=== PATIENT | female | born 1945 | race Caucasian/White ===

== ENCOUNTER 2022-09-24 07:58 | Outpatient (CLI) | payer MEDICARE, BC, SELFPAY ==
[2022-09-24 13:10] LABS: Cholesterol* 240 mg/dL (90-199); Glucose* 92 mg/dL (60-115); HDL Cholesterol* 67 mg/dL (>=50); LDL Cholesterol Calculated 155 mg/dL (<100); Triglycerides* 91 mg/dL (40-149)
[2022-09-24 13:14] LABS: Vitamin D 25 Hydroxy* 34 ng/mL (30-80)
== END 2022-09-24 07:59 | disposition home or self-care (01) ==
LOC: NFLDREF 07:59
PROVIDERS: PCP Internal Medicine; Visit Provider Internal Medicine
DX: Z00.00 Encounter for general adult medical examination without abnormal findings (principal); E03.9 Hypothyroidism, unspecified; M85.80 Other specified disorders of bone density and structure, unspecified site; E78.5 Hyperlipidemia, unspecified
CPT/HCPCS: 80061; 82306; 82947; 84443

== ENCOUNTER 2023-04-19 18:36 | Outpatient (CLI) | payer MEDICARE, BC, SELFPAY | END 2023-04-19 18:37 | disposition home or self-care (01) | LOC: AMB 04-22 12:09 | PROVIDERS: PCP Internal Medicine; Visit Provider Emergency Medicine Emergency Medical Services | DX: R07.89 Other chest pain (principal) | CPT/HCPCS: A0425; A0429 ==

== ENCOUNTER 2023-07-15 11:40 | Outpatient (CLI) | payer MEDICARE, BC, SELFPAY | END 2023-07-15 11:41 | disposition home or self-care (01) | LOC: AMB 07-16 11:33 | PROVIDERS: PCP Internal Medicine; Visit Provider Family Medicine | DX: S09.90XA Unspecified injury of head, initial encounter (principal); S19.9XXA Unspecified injury of neck, initial encounter; S09.93XA Unspecified injury of face, initial encounter; S89.92XA Unspecified injury of left lower leg, initial encounter; W18.09XA Striking against other object with subsequent fall, initial encounter; Y92.512 Supermarket, store or market as the place of occurrence of the external cause | CPT/HCPCS: A0425; A0429 ==

== ENCOUNTER 2023-07-15 12:07 | Emergency (ER) | payer MEDICARE, BC, SELFPAY ==
[2023-07-15 12:13] VITALS: BP 140/87; RESP 16; TEMP 35.8; O2SAT 98; BMI 26.3
--- NOTE | 2023-07-15 12:27 | CRLHL7_ITS ---
For Patients: As a result of the Cures Act, medical imaging exams and procedure reports are released immediately into your electronic medical record. You may view this report before your referring provider. If you have questions, please contact your health care provider. INDICATION: Fall. COMPARISON: None. TECHNIQUE: Four views of the right knee. FINDINGS: The knee soft tissues are unremarkable. Tibial femoral chondrocalcinosis is present. The tibial femoral and patellofemoral joint spaces are well maintained. No fracture or osteonecrosis is identified. IMPRESSION: 1. No fracture. 2. Chondrocalcinosis. Dictated by Kristian García MD @ 07/15/2023 1:33:52 PM (Electronically Signed)
--- NOTE | 2023-07-15 12:27 | CRLHL7_ITS ---
For Patients: As a result of the Century Cures Act, medical imaging exams and procedure reports are released immediately into your electronic medical record. You may view this report before your referring provider. If you have questions, please contact your health care provider. Indication: Trauma. Fall and hit face. Technique: CT head: Performed without IV contrast. CT facial bones: Performed without IV contrast Comparison: None available. Findings: CT Head: No hemorrhage is identified. No cortical edema or ischemia is localized on this exam. No mass effect or ventricular obstruction. There are some low-attenuation changes in the cerebral white matter compatible with small vessel ischemic change. There is also mild background symmetric cerebral atrophy. The calvarium and skull base are unremarkable, with normal aeration of the visualized petrous temporal bones on both sides. CT facial bones: No facial bone fractures are identified. The mandible, maxilla, nasal bones and nasal spine, zygomatic bones and orbital rims are intact on both sides. No evidence for orbital hematoma. Slight scattered membrane thickening in the ethmoid paranasal sinuses. Impression: CT head: 1. No hemorrhage, fracture or cortical contusion. 2. Mild to moderate cerebral atrophy. 3. Probable mild small vessel ischemic changes. CT facial bones: 1. No fractures are identified. 2. Minimal membrane thickening in the ethmoid paranasal sinuses. Please note that all CT scans at this facility use dose modulation, iterative reconstruction, and/or weight-based dosing when appropriate to reduce radiation dose to as low as reasonably achievable. Dictated by José Lawson MD @ 07/15/2023 1:18:57 PM (Electronically Signed)
--- NOTE | 2023-07-15 12:27 | CRLHL7_ITS ---
For Patients: As a result of the Cures Act, medical imaging exams and procedure reports are released immediately into your electronic medical record. You may view this report before your referring provider. If you have questions, please contact your health care provider. INDICATION: Fall. COMPARISON: None. TECHNIQUE: Four views of the left knee. FINDINGS: The left knee soft tissues are unremarkable. Tibial femoral chondrocalcinosis is present. The tibial femoral and patellofemoral joint spaces are well maintained. No fracture or osteonecrosis is identified. IMPRESSION : 1. No fracture. 2. Chondrocalcinosis. Dictated by Kristian García MD @ 07/15/2023 1:35:26 PM (Electronically Signed)
--- NOTE | 2023-07-15 12:27 | CRLHL7_ITS ---
For Patients: As a result of the Century Cures Act, medical imaging exams and procedure reports are released immediately into your electronic medical record. You may view this report before your referring provider. If you have questions, please contact your health care provider. Indication: Pain following trauma. Follow-up. Technique: Performed without IV contrast. Comparison: None available. Findings: No traumatic subluxation identified. Straightening of the normal cervical lordosis. No evidence for fracture. Scattered spondylosis, including right-sided uncinate hypertrophy at C6-7 with potential impingement on the right C7 nerve root. The paraspinal soft tissues are grossly negative. Impression: 1. No fracture or traumatic subluxation identified. 2. Asymmetric right uncinate hypertrophy at C6-7, with potential C7 root impingement. Please note that all CT scans at this facility use dose modulation, iterative reconstruction, and/or weight-based dosing when appropriate to reduce radiation dose to as low as reasonably achievable. Dictated by José Lawson MD @ 07/15/2023 1:21:18 PM (Electronically Signed)
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
[2023-07-15 13:23] VITALS: PULSE 81; O2SAT 97
[2023-07-15 13:30] VITALS: PULSE 73; O2SAT 98
[2023-07-15 13:32] VITALS: BP 124/55; PULSE 87; O2SAT 99
[2023-07-15 13:45] VITALS: PULSE 74; O2SAT 98
== END 2023-07-15 14:05 | disposition home or self-care (01) ==
PROVIDERS: Emergency Provider Student in an Organized Health Care Education/Training Program; PCP Internal Medicine
DX: M25.562 Pain in left knee (principal); S09.92XA Unspecified injury of nose, initial encounter; W01.0XXA Fall on same level from slipping, tripping and stumbling without subsequent striking against object, initial encounter
CPT/HCPCS: 70450; 70486; 72125; 73564; 99283; 99284

== ENCOUNTER 2025-05-25 13:06 | Emergency (ER) | payer MEDICARE, BC, SELFPAY ==
--- OUTSIDE RECORDS SUMMARY | 2021-04-06 07:44 | XMS_ITS | Continuity of Care Document ---
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 Name Role Phone Cedric Jones MD Unavailable Unavailable Allergies, Adverse Reactions, Alerts Substance Reaction Status Criticality codeine Vomiting Active No Information terbinafine Taste sense alteredItchingItching Active No Information Medications Medication Instructions Dosage Effective Dates (start - stop) Status Comments Synthroid 75 mcg tablet take 1 tablet by oral route 2 times weekly and 0.5 5 times weekly - Active Vitamin C 500 mg chewable tablet Chew 1 tablet by oral route 1 time daily - Active Procedures Procedure Date New Level 4 or 45-59 min Advance Directives Directive Yes / No Effective Date File Name No Information Encounters Encounter Description Practice Location Reason(s) For Visit Diagnoses Date Provider Providers Copied on Encounter [facility], [address] [address], [place], [place], [id number], [place] tel:[phone] [facility] No Information 1 Karen Steele. [address], [facility] [address], [place], [place], [id number], [place]. tel:[phone] New Level 4 or 45-59 min [facility], [address] [address], [place], [place], [id number], [place] tel:[phone] [facility] GI Symptoms or Concerns (chief complaint) Dysphagia, unspecified typeDuodenal adenoma 0 No Information Referring Provider: Kourtney Ca MD E, [address] [place] [facility], [place], [address]. tel:[phone] [facility], [address] [address], [place], [place], [id number], [place] tel:[phone] [facility] No Information 0 Karen Steele. [address], [facility] [address], [place], [place], [id number], [place]. tel:[phone] Family History Family Member Type Diagnosis Age At Onset Mother Problem (finding) alcoholism Daughter Problem (finding) Blood clotting disorder Mother Problem (finding) Diabetes mellitus Father Problem (finding) Parkinson's disease Immunizations Vaccine Date Status Comments tetanus toxoid, reduced diphtheria toxoid, and acellular pertussis vaccine, adsorbed administered Note: [facility] b i-directional interface ; Source: Other Registry influenza, high dose seasona l, preservative-free administered Note: [facility] bi-direct ional interface ; Source: Other Registry Influenza, seasonal, injecta ble, preservative free administered Note: [facility] bi-direct ional interface ; Source: Other Registry Pneumovax 23 administered Note: [facility] bi-d irectional interface ; Source: Other Registry zoster vaccine, live administered Note: [facility] bi-directional interface ; Source: Other Registry Influenza, seasonal, injecta ble, preservative free administered Note: [facility] bi-direct ional interface ; Source: Other Registry tetanus and diphtheria toxoi ds, adsorbed, preservative free, for adult use (2 Lf of tetanus toxoid and 2 Lf of diphtheria toxoid) administered Note: [facility] bi-direct ional interface ; Source: Other Registry tetanus and diphtheria toxoi ds, adsorbed, preservative free, for adult use (2 Lf of tetanus toxoid and 2 Lf of diphtheria toxoid) administered Note: [facility] bi-direct ional interface ; Source: Other Registry Payers Payer name Insurance type Covered republican ID Authoriza tion(s) [employer] [place] [employer] BL [id number] Social History Type Description Quantity Date Captured Comments Alcohol Use Details Unknown Caffeine Use Details Unknown Tobacco Use Status No Information Smoking Status No Information Sex Female Chief Complaint And Reason For Visit No Information Reason For Referral Reason For Referral No Information Plan Of Treatment Date Type Action Status Referral Ordered: EGD Appointment date/timeframe: 04/26/2021 ordered History Of Present Illness Encounter Date Complaint History Of Prese nt Illness GI Symptoms or Concerns Areli Connelly son is a 75-year-old female who was referred for evaluation of dysphagia and a duodenal adenoma. The patient did consent to her visit being held via the computer and she did have a friend present with her on the video chat.The patient has a history of dysphagia as well as a duodenal adenoma, which was diagnosed in 2018.The patient states that she had been having trouble swallowing in 2018. She underwent an endoscopy with a surgeon in [place]. 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 Following this, she had an esophagram which suggested esophageal dysmotility as well as a cervical esophageal webs on an esophagram. She was referred for an endoscopy with Dr. Tommy Arboleda which was completed in 2018 with a side-viewing scope. This revealed a web in the upper third of the esophagus which was dilated with an ERCP scope. She had a large carpet like polyp with no bleeding in the duod Functional Status Date Functional Assessmen t No Information Instructions Date Instruction Additional Infor hazel 1. Will plan for upp er endoscopy with a side viewing scope. Will review with our advanced endoscopists to see if EUS should be done at the same time. Can dilate the esophagus if needed during that scope2. Depending on the results we could consider a 2nd surgical opinion at the [facility] Related to Dysphagia, unspecified type Assessments Type Assessment Date No Information Patient Care Teams Name Effective Dates (start - stop) Status Members No Information
--- OUTSIDE RECORDS SUMMARY | 2025-05-25 13:08 | XMS_ITS | Clinical Summary ---
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 levothyroxine (SYNTHROID) 75 mcg tabletIndication s:Hypothyroidism , unspecified type Take 1/2 tablet PO qd 5 days per week and 1 tablet PO qd 2 days per week 90 Tablet 3 4 Active fluticasone (50 mcg per actuation) nasal solution (FLONASE)Indicat ions:Sinus pain Inhale 2 Sprays into affected nostril(s) once daily. 16 g 11 5 Active triamcinolone (ARISTOCORT; KENALOG) 0.1 % creamIndications :Dermatitis Apply a pea-sized amount topically 1-2x per day up to 10 days at a time to your right forearm. Do not recommend routine daily use as this can thin the skin. 15 g 1 5 Active medication order composerIndicati ons:PTSD (post-traumatic stress disorder) [employer] Glynn-3 - 1 tsp daily with food (omegas 1560 mg - EPA 745 mg, DHA 500 mg) [employer] Life Vitamin D - 2000 IU daily Solary Vitamin B complex with c - 1/2 chewable tablet daily Natural Calm mag citrate - 1.75 tsp daily Natural Factors suntheanine 100 mg HS 5 Active cholecalciferol (Vitamin D-3) 2,000 unit capsule Take 1 Capsule (2,000 units) by mouth once daily. 5 Active theanine 100 mg chew Chew by mouth. 5 Active predniSONE (DELTASONE) 10 mg tabletIndication s:Sjogren's syndrome, with unspecified organ involvement (HC) Take 2 tablets (20 mg) once daily for 5 days, then 1 tablet (10 mg) once daily for 5 days. 15 Tablet 5 Active magnesium oxide 300 mg magnesium tab Take by mouth. Activ e calcium phosphate-vitami n D3 125 mg-3.125 mcg (125 unit) chew Chew by mouth. Active vitamin B complex (B COMPLEX B-12 ORAL) Take by mouth. Activ e calcium phos-D3-mag cit-vit K1 (Kids Bones-Muscles) 162 mg calcium- 10 mcg-21 mg chew Chew by mouth. Activ e Active Problems Problem Noted Date Diagnosed Date Generalized osteoarthritis of multiple sites 02/2025 Sjogren's syndrome 01/24/2025 Esophageal web determined by endoscopy 4 11/27/2018 Villous adenoma of duodenum 10/25/202411/17 Overview (10/25/2024): PT was last seen by GI in 2019 and had discussed doing Whipple surgery vs monitoring, PT chose monitoring and has had no repeat EGD since 2019 Esophageal dysphagia 10/25/20242017 Overview (10/25/2024): dysphagia since per chad avendano note S/P cholecystectomy 10/25/2024 Osteopenia of multiple sites 10/22/2024 Overview (11/09/2024): Hips with high risk fracture score-she would like to continue supportive management for treatment. 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 [address] [place] [address] Delgado Burkett MD Recheck (Hearing Loss) 04/18/2025 1:00 PM CDT Office Visit [facility] [address] [place] [address] Zohreh Flannery, AuD Hearing Problem 04/18/2025 Travel 03/09/2025 3:35 PM CDT Ancillary Procedure [facility] [address] [facility] [address] [place] [address] 03/09/2025 3:30 PM CDT Ancillary Procedure [place] [id number] [facility] [address] [place] [address] 03/09/2025 3:25 PM CDT Ancillary Procedure [facility] [address] [facility] [address] [place] [address] 03/09/2025 3:20 PM CDT Ancillary Procedure [facility] [address] [facility] [address] [place] [address] 03/09/2025 2:00 PM CDT [facility] [address] [facility] [address] [place] [address] Andreia Arnold MD Consult (Sjogren's syndrome ) 03/09/2025 Orders Only [facility] Scanner 1 scan: (1-Ord) [facility] 03/09/2025 Travel from Last 3 Months Immunizations Immunization Administration Dates Next Due Influenza, High-dose Inactivated 10/26/2014 Influenza, IIV3 (Age 6-35 mos) 08/18/2013,2011 Pneumococcal Poly,23-Valent (Pneumovax) 09/14/20 12 Td (Age >=7 Years) 05/03/2011,05/19/2000 Tdap 10/01/2016 Zoster (Zostavax-ZVL, live) 09/14/2012 Family History Medical History Relation Name Comments Parkinsonism Father Alcoholism Mother Depression Mother Diabetes Mother Cancer-breast No Family History Cancer-ovarian No Family History Relation Name Status Comments Father Mother Social History Tobacco Use Types Packs/Day Years Used Date Smoking Tobacco: Never Passive Smoke Exposure: Never Smokeless Tobacco: Never Tobacco Cessation:Counseling Given: Yes Alcohol Use Standard Drinks/Week Comments Not Currently 0 (1 standard drink = 0.6 oz pur e alcohol) Extremely Rare PHQ-2 Answer Date Recorded PHQ-2 TOTAL SCORE 2 10/21/2024 Social Connections Answer Date Recorded Do you often feel lonely or isolated from those around you? 4 10/21/2024 Financial Resource Strain Answer Date R ecorded Difficulty of Paying Living Expenses 3 10/21/2024 Difficulty of Paying Living Expenses Not on file 10/21/2024 Food Insecurity Answer Date Recorded Do you worry your food will run out before you are able to buy more? 1 10/21/2024 Transportation Needs Answer Date Record ed Does lack of transportation keep you from medica l appointments? 1 10/21/2024 Does lack of transportation keep you from work, meetings or getting things that you need? 1 10/21/2024 Housing Stability Answer Date Recorded What is your housing situation today? 1 10/21/2024 Utilities Answer Date Recorded Do you have trouble paying f or utilities (for example, heat, electricity, water, phone)? 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 Gender Identity Not on file Sexual Orientation Not on file Obstetrics History Last Filed Vital Signs Vital Sign Reading Time Taken Comments Blood Pressure 138/62 04/20/2025 2:20 PM CDT Pulse 86 04/20/2025 2:20 PM CDT Temperature 36.6 C (97.9 F) 10/25/2024 9:22 AM CHILDREN'S MINISTRY DIRECTOR Respiratory Rate 16 10/25/2024 12:15 PM CHILDREN'S MINISTRY DIRECTOR Oxygen Saturation 97% 04/20/2025 2:20 PM CDT Inhaled Oxygen Concentration - - Weight 66.5 kg (146 lb 9.6 oz) 04/20/2025 2:20 P M CDT Height 152.4 cm (5') 04/20/2025 2:20 PM CDT Body Mass Index 28.63 04/20/2025 2:20 PM CDT Plan of Treatment Upcoming Encounters Date Type Department Care Team (Late st Contact Info) Description 06/17/2025 11:15 AM CDT Ancillary Procedure [facility] [address] [place] [address] 06/20/2025 1:00 PM CDT Office Visit [facility] [address] [place] [facility] [place] [address] Katerine Montoya PA [address] [place] [address] 08/22/2025 9:30 AM CDT Orders Only [facility] [address] [place] [facility] [place] [address] Lab, [place] 08/29/2025 1:00 PM CDT Office Visit [facility] [address] [address] [place] [address] [place], [place] [id number] Health Maintenance Due Date Last Done Comments Zoster (shingles) series for age 50+ (2 of 3) 11/09/2012 09/14/2012 Pneumococcal series for age 50+ (2 of 2 - PCV) 09/14/2013 09/14/2012 RSV vaccine for adults or (1 - 1-dose 75+ series) 2022 COVID-19 vaccine series (3 - season) 2024 04/17/2021, 03/20/2021 Influenza Vaccine (#1) 2025 4, 08/18/2013, 08/14/2012 Medicare Wellness for age 65+ 10/22/2025 10/21/2024, 10/17/2023 Depression screening for age 12+ 11/02/2025 11/02/2024, 10/21/2024, 08/23/2024, Additional history exists BMI (ht and wt on same day) for age 18+ 04/20/2026 04/20/2025, 03/09/2025, 01/21/2025, Additional history exists Tetanus booster 10/01/2026 10/01/2016, 04/17, 05/19/2000 Hepatitis C screening for age 18-79 Completed 10/10/2023 DEXA/DXA scan for age 65+ Completed 11/02/2024, Hepatitis B series for 19+ Aged Out N o longer eligible based on patient's age to complete this topic Procedures Procedure Name Priority Date/Time Associated Diagnosis Comments ANTINUCLEAR ANTIBODIES TITER AND PATTERN (QUEST REFLEX ONLY) Routine 03/09/2025 3:45 PM CDT C4 COMPLEMENT Routine 03/09/2025 3:45 PM CDT Sjogren's syndrome with keratoconjunctivitis sicca (HC) C3 COMPLEMENT Routine 03/09/2025 3:45 PM CDT Sjogren's syndrome with keratoconjunctivitis sicca (HC) COMP METABOLIC PANEL Routine 03/09/2025 3:45 PM CDT Sjogren's syndrome with keratoconjunctivitis sicca (HC) VA BLOOD COUNT COMPLETE AUTO&AUTO DIFRNTL WBC Routine 03/09/2025 3:45 PM CDT Sjogren's syndrome with keratoconjunctivitis sicca (HC) TSH Routine 03/09/2025 3:45 PM CDT Fatigue, unspecified type CK TOTAL Routine 03/09/2025 3:45 PM CDT Sjogren's syndrome with keratoconjunctivitis sicca (HC) DNA DOUBLE-STRANDED (DSDNA) ANTIBODIES BY CRITHIDIA LUCILIAE IFA Routine 03/09/2025 3:45 PM CDT Sjogren's syndrome with keratoconjunctivitis sicca (HC) SEDIMENTATION RATE Routine 03/09/2025 3: 45 PM CDT Sjogren's syndrome with keratoconjunctivitis sicca (HC) C-REACTIVE PROTEIN Routine 03/09/2025 3: 45 PM CDT Sjogren's syndrome with keratoconjunctivitis sicca (HC) ANTINUCLEAR ANTIBODY BY IFA Routine 03/09/2025 3:45 PM CDT Sjogren's syndrome with keratoconjunctivitis sicca (HC) UA W/ SEDIMENT EXAM REFLEXED PER CRITERIA STAT 03/09/2025 3:44 PM CDT Sjogren's syndrome with keratoconjunctivitis sicca (HC) PROTEIN/CREAT RATIO,URINE Routine 03/09/2025 3:43 PM CDT Sjogren's syndrome with keratoconjunctivitis sicca (HC) XR KNEE WB 1 VIEW AP BILATERAL AND 2 VIEWS BILATERAL Routine 03/09/2025 3:34 PM CDT Polyarthralgia XR SPINE LUMBAR 2 VIEWS Routine 03/09/2025 3:32 PM CDT Chronic midline low back pain without sciatica XR SHOULDER 2 VIEWS BILATERAL Routine 03/09/2025 3:31 PM CDT Polyarthralgia XR SPINE CERVICAL 2 VIEWS Routine 03/09/2025 3:26 PM CDT Chronic neck pain SCAN-EYE EXAM 03/09/2025 12:00 AM CDT XR DXA BONE DENSITY 2 SITES AXIAL Routine 11/02/2024 11:33 AM CHILDREN'S MINISTRY DIRECTOR Postmenopausal ANTI HCV Routine 10/10/2023 1:26 PM CHILDREN'S MINISTRY DIRECTOR Need for hepatitis C screening test from Last 3 Months or Most Recently Relevant to Health Maintenance Results * (ABNORMAL) ANTINUCLEAR ANTIBODIES TITER AND PATTERN (QUEST REFLEX ONLY) (03/09/2025 3:45 PM CDT) BRANDI TITER 1:160(H) titer [facility] Comment: Reference Range <1:40 Negative 1:40-1:80 Low Antibody Level >1:80 Elevated Antibody Level BRANDI PATTERN Nuclear, Speckled( A) [facility] Comment: Speckled pattern is associated with mixed connective tissue disease (MCTD), systemic lupus erythematosus (SLE), Sjogren's syndrome, dermatomyositis, and systemic sclerosis/polymyositis overlap. AC-2,4,5,29: Speckled International Consensus on BRANDI Patterns (https://doi.org/10.1515/fulg-6212-4151) 03/09/2025 3:45 PM CDT 03/09/2025 3:46 PM CDT us Andreia Arnold MD LABORATORY Fin al Result Performing Organization Address [facility] Co de Phone Number [employer] [facility] [address] [place] [address], [place] [phone] [facility] [address] [facility] [place] [address] * (ABNORMAL) SEDIMENTATION RATE (03/09/2025 3:45 PM CDT) Pathologist [facility] SED RATE BY MODIFIED WESTERGREN 34(H) < OR = 30 mm/h [facility] Nguyen Blood BLOOD SPECIMEN / Unknown 03/09/2025 3:45 PM CDT 03/09/2025 3:46 PM CDT Andreia Arnold MD HEMATOLOGY Fin al Result Performing Organization Address [facility] de Phone Number [employer] [facility] [address] [place] [address], [place] [phone] [facility] [address] [facility] [place] [address] * (ABNORMAL) ANTINUCLEAR ANTIBODY BY IFA (03/09/2025 3:45 PM CDT) [facility] BRANDI SCREEN, IFA POSITIVE( A) NEGATIVE [email or web address] Comment: BRANDI IFA is a first line screen for detecting the presence of up to approximately 150 autoantibodies in various autoimmune diseases. A positive BRANDI IFA result is suggestive of autoimmune disease and reflexes to titer and pattern. Further laboratory testing may be considered if clinically indicated. For additional information, please refer to http://education.Stoke/faq/NFM006 (This link is being provided for informational/ educational purposes only.) Blood BLOOD SPECIMEN / Unknown 03/09/2025 3:45 PM CDT 03/09/2025 3:46 PM CDT Andreia Arnold MD CHEMISTRY Fin al Result Performing Organization Address [facility] Co de Phone Number [employer] [facility] [address] [facility] [place] [address], [place] [phone] [facility] [address] [place] [address] * TSH (03/09/2025 3:45 PM CDT) TSH 1.15 0.40 - 4.50 mIU/L [facility] Blood BLOOD SPECIMEN / Unknown 03/09/2025 3:45 PM CDT 03/09/2025 3:46 PM CDT Andreia Arnold MD CHEMISTRY Fin al Result Performing Organization Address City/[facility]/ZIP Co de Phone Number [employer] [facility] [address] [facility] [place] [address], [place] [phone] [facility] [address] [facility] [place] [address] * C3 COMPLEMENT (03/09/2025 3:45 PM CDT) COMPLEMENT COMPONENT C3C 145 83 - 193 mg/dL [facility] Blood BLOOD SPECIMEN / Unknown 03/09/2025 3:45 PM CDT 03/09/2025 3:46 PM CDT Andreia Arnold MD CHEMISTRY Fin al Result [facility] [address] [facility] [place] [address], [place] [phone] [facility] [address] [place] [address] * C4 COMPLEMENT (03/09/2025 3:45 PM CDT) COMPLEMENT COMPONENT C4C 23 15 - 57 mg/dL [facility] Blood BLOOD SPECIMEN / Unknown 03/09/2025 3:45 PM CDT 03/09/2025 3:46 PM CDT Andreia Arnold MD CHEMISTRY Fin al Result [employer] [facility] [address] [facility] [place] [address], [place] [phone] [facility] [address] [facility] [place] [address] * DNA DOUBLE-STRANDED (DSDNA) ANTIBODIES BY CRITHIDIA LUCILIAE IFA (03/09/2025 3:45 PM CDT) DNA (DS) ANTIBODY <1 IU/mL [facility] Comment: IU/mL Interpretation < or = 4 Negative 5-9 Indeterminate > or = 10 Positive Blood BLOOD SPECIMEN / Unknown 03/09/2025 3:45 PM CDT 03/09/2025 3:46 PM CDT Andreia Arnold MD SEND OUTS Fin al Result Performing Organization Address [facility]/ZIP Co de Phone Number [employer] [facility] [address] [place] [address], [place] [phone] [facility] [address] [place] [address] * C-REACTIVE PROTEIN (03/09/2025 3:45 PM CDT) C-REACTIVE PROTEIN <3.0 <8.0 mg/L [facility] Blood BLOOD SPECIMEN / Unknown 03/09/2025 3:45 PM CDT 03/09/2025 3:46 PM CDT Andreia Arnold MD CHEMISTRY Fin al Result [employer] [facility] [address] [facility] [place] [address], [place] [phone] [facility] [address] [place] [address] * CBC AND DIFFERENTIAL (03/09/2025 3:45 PM CDT) WHITE BLOOD CELL COUNT 5.7 3.8 - 10.8 Thousand/u L [facility] ( RED BLOOD CELL COUNT 4.01 3.80 - 5.10 Million/uL [facility] ( HEMOGLOBIN 12.0 11.7 - 15.5 g/dL [facility] ( HEMATOCRIT 36.7 35.0 - 45.0 % [facility] ( MCV 91.5 80.0 - 100.0 fL [facility] ( MCH 29.9 27.0 - 33.0 pg [facility] ( MCHC 32.7 32.0 - 36.0 g/dL [facility] ( Comment: For adults, a slight decrease in the calculated MCHC value (in the range of 30 to 32 g/dL) is most likely not clinically significant; however, it should be interpreted with caution in correlation with other red cell parameters and the patient's clinical condition. RDW 14.4 11.0 - 15.0 % [facility] ( PLATELET COUNT 297 140 - 400 Thousand/u L [facility] ( MPV 8.3 7.5 - 12.5 fL [facility] ( ABSOLUTE NEUTROPHILS 2,172 1,500 - 7,800 cells/uL [facility] ( ABSOLUTE LYMPHOCYTES 2,616 850 - 3,900 cells/uL [facility] ( ABSOLUTE MONOCYTES 673 200 - 950 cells/uL [facility] ( ABSOLUTE EOSINOPHILS 200 15 - 500 cells/uL [facility] ( ABSOLUTE BASOPHILS 40 0 - 200 cells/uL [facility] ( NEUTROPHILS 38.1 % [facility] ( LYMPHOCYTES 45.9 % [facility] ( MONOCYTES 11.8 % [facility] ( EOSINOPHILS 3.5 % [facility] ( BASOPHILS 0.7 % [facility] ( Blood BLOOD SPECIMEN / Unknown 03/09/2025 3:45 PM CDT 03/09/2025 3:46 PM CDT Andreia Arnold MD HEMATOLOGY Fin al Result [facility] [address] [place] [address], [facility] ( [address] [place] [address] * CK TOTAL (03/09/2025 3:45 PM CDT) CREATINE KINASE, TOTAL 103 18 - 225 U/L [facility] sivakumar Nguyen Blood BLOOD SPECIMEN / Unknown 03/09/2025 3:45 PM CDT 03/09/2025 3:46 PM CDT Andreia Arnold MD CHEMISTRY Fin al Result Performing Organization Address City/[facility]/ZIP Co de Phone Number [facility] [address] [place] [address], [facility] [address] [place] [address] * COMP METABOLIC PANEL (03/09/2025 3:45 PM CDT) GLUCOSE 89 65 - 99 mg/dL [facility] Comment: Fasting reference interval UREA NITROGEN (BUN) 19 7 - 25 mg/dL [facility] CREATININE 0.94 0.60 - 1.00 mg/dL [facility] EGFR 62 > OR = 60 mL/min/1. 73m2 [facility] BUN/CREATININE RATIO SEE NOTE: (calc) [facility] Comment: Not Reported: BUN and Creatinine are within reference range. SODIUM 140 135 - 146 mmol/L [facility] POTASSIUM 4.1 3.5 - 5.3 mmol/L [facility] CHLORIDE 106 98 - 110 mmol/L [facility] CARBON DIOXIDE 28 20 - 32 mmol/L [facility] CALCIUM 9.8 8.6 - 10.4 mg/dL [facility] PROTEIN, TOTAL 7.1 6.1 - 8.1 g/dL [facility] ALBUMIN 4.3 3.6 - 5.1 g/dL [facility] GLOBULIN 2.8 1.9 - 3.7 g/dL (calc) [facility] ALBUMIN/GLOBULIN RATIO 1.5 1.0 - 2.5 (calc) [facility] BILIRUBIN, TOTAL 0.3 0.2 - 1.2 mg/dL [facility] ALKALINE PHOSPHATASE 60 37 - 153 U/L [facility] AST 20 10 - 35 U/L [facility] ALT 17 6 - 29 U/L [facility] Blood BLOOD SPECIMEN / Unknown 03/09/2025 3:45 PM CDT 03/09/2025 3:46 PM CDT Andreia Arnold MD CHEMISTRY Fin al Result [facility] [address] [place] [address], [place] [phone] [facility] [address] [place] [address] * (ABNORMAL) IN CLINIC UA w/ Sediment Exam Reflexed per Criteria (03/09/2025 3:44 PM CDT) COLOR YELLOW YELLOW [facility] ( APPEARANCE CLEAR CLEAR [facility] ( SPECIFIC GRAVITY 1.020 1.001 - 1.035 [facility] ( PH 5.5 5.0 - 8.0 [facility] ( GLUCOSE NEGATIVE NEGATIVE [facility] ( BILIRUBIN NEGATIVE NEGATIVE [facility] ( KETONES NEGATIVE NEGATIVE [facility] ( OCCULT BLOOD TRACE(A) NEGATIVE [facility] ( PROTEIN NEGATIVE NEGATIVE [facility] ( NITRITE NEGATIVE NEGATIVE [facility] ( LEUKOCYTE ESTERASE 3+(A) NEGATIVE [facility] ( WBC UA 0-5 < OR = 5 /HPF [facility] ( RBC UA 0-2 < OR = 2 /HPF [facility] ( SQUAMOUS EPITHELIAL CELLS UA 0-5 < OR = 5 /HPF [facility] ( BACTERIA UA FEW(A) NONE SEEN /HPF [facility] ( NOTE UA [facility] ( Comment: This urine was analyzed for the presence of WBC, RBC, bacteria, casts, and other formed elements. Only those elements seen were reported. Urine URINE SPECIMEN / Unknown 03/09/2025 3:44 PM CDT 03/09/2025 3:45 PM CDT us Andreia Arnold MD URINE Fin al Result [facility] [address] [place] [address], [facility] ( [address] [place] [address] * PROTEIN/CREAT RATIO,URINE (03/09/2025 3:43 PM CDT) PROTEIN QUANT,RAND URINE <6 1 - 14 mg/dL 03/10/2025 12:40 AM CDT [facility] CREAT,RANDOM URINE 66.8 28.0 - 217.0 mg/dL 03/10/2025 12:40 AM CDT [facility] PROT/CREAT RATIO,UR 03/10/2025 12:40 AM CDT [facility] Comment:Urine Protein below measurement range, unable to calculate. Urine URINE SPECIMEN / Unknown Non-Blood / Unknown 03/09/2025 3:43 PM CDT 03/09/2025 3:43 PM CDT Andreia Arnold MD URINE Fin al Result [facility] [address] [place] [address], [place] * XR KNEE WB 1 VIEW AP BILATERAL AND 2 VIEWS BILATERAL (03/09/2025 3:34 PM CDT) Anatomical Region Laterality Modality KNEES [employer] 03/09/2025 7:36 PM CDT Impressions 03/09/2025 7:36 PM CDT Bilateral moderately dense mineralization of the menisci for chondrocalcinosis. Mild degenerative grade 1 narrowing medial compartment left knee. No inflammatory arthritis or erosions. No other degenerative change. Bones look osteopenic diffusely without fracture or bone lesion. No joint effusion in either knee. Dictated by Gato Arora MD @ Mar 09 2025 7:36PM (Electronically Signed) [email or web address] Narrative 03/09/2025 7:36 PM CDT For Patients: As a result of the Cures Act, medical imaging exams and procedure reports are released immediately into your electronic medical record. You may view this report before your referring provider. If you have questions, please contact your health care provider. INDICATION: Polyarthralgia. TECHNIQUE: Four views bilateral knees. Procedure Note Gato Arora MD - 03/09/2025 For Patients: As a result of the Cures Act, medical imagingexams and procedure reports are released immediately into your electronicmedical record. You may view this report before your referring provider.If you have questions, please contact your health care provider. INDICATION: Polyarthralgia. TECHNIQUE: Four views bilateral knees. IMPRESSION: Bilateral moderately dense mineralization of the menisci forchondrocalcinosis. Mild degenerative grade 1 narrowing medial compartmentleft knee. No inflammatory arthritis or erosions. No other degenerativechange. Bones look osteopenic diffusely without fracture or bone lesion.No joint effusion in either knee. Dictated by Gato Arora MD @ Mar 09 2025 7:36PM (Electronically Signed) [email or web address] Andreia Arnold MD GENERAL IMAGING Fin al Result * XR SPINE LUMBAR 2 VIEWS (03/09/2025 3:32 PM CDT) Anatomical Region Laterality Modality LUMBAR SPINE Digital Radiogra phy 03/09/2025 7:40 PM CDT Impressions 03/09/2025 7:40 PM CDT Mild scoliosis centered left thoracolumbar junction. Mild wedging of L1 likely age indeterminate compression deformity. Posterior cortex intact. Mild diffuse disc height loss in the lumbar spine. Mild diffuse facet arthrosis. Some atherosclerotic calcification aorta. Moderate amount of dense formed stool through the redundant appearing colon. Right upper quadrant cholecystectomy clips. Dictated by Gato Arora MD @ Mar 09 2025 7:40PM (Electronically Signed) [email or web address] Narrative 03/09/2025 7:40 PM CDT For Patients: As a result of the Cures Act, medical imaging exams and procedure reports are released immediately into your electronic medical record. You may view this report before your referring provider. If you have questions, please contact your health care provider. INDICATION: Back pain. TECHNIQUE: Two views lumbar spine. Procedure Note Gato Arora MD - 03/09/2025 For Patients: As a result of the Cures Act, medical imagingexams and procedure reports are released immediately into your electronicmedical record. You may view this report before your referring provider.If you have questions, please contact your health care provider. INDICATION: Back pain. TECHNIQUE: Two views lumbar spine. IMPRESSION: Mild scoliosis centered left thoracolumbar junction. Mild wedging of X6bghsap age indeterminate compression deformity. Posterior cortex intact.Mild diffuse disc height loss in the lumbar spine. Mild diffuse facetarthrosis. Some atherosclerotic calcification aorta. Moderate amount ofdense formed stool through the redundant appearing colon. Right upperquadrant cholecystectomy clips. Dictated by Gato Arora MD @ Mar 09 2025 7:40PM (Electronically Signed) [email or web address].[employer] Andreia Arnold MD GENERAL IMAGING Fin al Result * XR SHOULDER 2 VIEWS BILATERAL (03/09/2025 3:31 PM CDT) Anatomical Region Laterality Modality SHOULDERS Digital Radiogra phy 03/09/2025 7:38 PM CDT Impressions 03/09/2025 7:38 PM CDT Hazy mineralization acromiohumeral space on the right may be some hydroxyapatite deposition or chronic dysmorphic posttraumatic mineralization of rotator cuff tendon. Maintained acromial humeral distance. Some mineralization of probable synovium in the glenohumeral joint space. No erosion. Maintained joint space. Normal AC joint. Anatomic alignment left glenohumeral joint. No mineralization of synovium or rotator cuff tendon. Maintained acromion humeral distance. No fracture. No bone lesion. Dictated by Gato Arora MD @ Mar 09 2025 7:38PM (Electronically Signed) [email or web address] Narrative 03/09/2025 7:38 PM CDT For Patients: As a result of the Cures Act, medical imaging exams and procedure reports are released immediately into your electronic medical record. You may view this report before your referring provider. If you have questions, please contact your health care provider. INDICATION: Polyarthralgia. TECHNIQUE: Four views bilateral shoulders. Procedure Note Gato Arora MD - 03/09/2025 For Patients: As a result of the Cures Act, medical imagingexams and procedure reports are released immediately into your electronicmedical record. You may view this report before your referring provider.If you have questions, please contact your health care provider. INDICATION: Polyarthralgia. TECHNIQUE: Four views bilateral shoulders. IMPRESSION: Hazy mineralization acromiohumeral space on the right may be somehydroxyapatite deposition or chronic dysmorphic posttraumaticmineralization of rotator cuff tendon. Maintained acromial humeraldistance. Some mineralization of probable synovium in the glenohumeraljoint space. No erosion. Maintained joint space. Normal AC joint. Anatomic alignment left glenohumeral joint. No mineralization of synoviumor rotator cuff tendon. Maintained acromion humeral distance. No fracture.No bone lesion. Dictated by Gato Arora MD @ Mar 09 2025 7:38PM (Electronically Signed) [email or web address] Andreia Arnold MD GENERAL IMAGING [facility] al Result * XR SPINE CERVICAL 2 VIEWS (03/09/2025 3:26 PM CDT) Anatomical Region Laterality Modality CERVICAL SPINE Digital Radiogra phy 03/09/2025 7:39 PM CDT Impressions 03/09/2025 7:39 PM CDT Anatomic alignment. No fracture. No bone lesion. No inflammatory arthritis finding. Mild disc height loss C5-6 and C6-C7. Mild diffuse facet arthrosis. Some atherosclerotic calcification right carotid. Prevertebral soft tissues otherwise normal. Dictated by Gato Arora MD @ Mar 09 2025 7:39PM (Electronically Signed) [email or web address] Narrative 03/09/2025 7:39 PM CDT For Patients: As a result of the Cures Act, medical imaging exams and procedure reports are released immediately into your electronic medical record. You may view this report before your referring provider. If you have questions, please contact your health care provider. INDICATION: Chronic neck pain. TECHNIQUE: Two views. Procedure Note Gato Arora MD - 03/09/2025 For Patients: As a result of the Cures Act, medical imagingexams and procedure reports are released immediately into your electronicmedical record. You may view this report before your referring provider.If you have questions, please contact your health care provider. INDICATION: Chronic neck pain. TECHNIQUE: Two views. IMPRESSION: Anatomic alignment. No fracture. No bone lesion. No inflammatory arthritisfinding. Mild disc height loss C5-6 and C6-C7. Mild diffuse facetarthrosis. Some atherosclerotic calcification right carotid. Prevertebralsoft tissues otherwise normal. Dictated by Gato Arora MD @ Mar 09 2025 7:39PM (Electronically Signed) [email or web address] Andreia Arnold MD GENERAL IMAGING Fin al Result * SCAN-EYE EXAM (03/09/2025 12:00 AM CDT) us Scanner OTHER Final Result * (ABNORMAL) XR DXA BONE DENSITY 2 SITES AXIAL (11/02/2024 11:33 AM CHILDREN'S MINISTRY DIRECTOR) Anatomical Region Laterality Modality Spine, HIPS, HIPL, HIPR Other Impressions 11/03/2024 9:24 AM CHILDREN'S MINISTRY DIRECTOR Osteopenia. RECOMMENDATIONS: The National Osteoporosis Foundation recommends pharmacologic treatment for patients with T-scores of -2.5 or less, patients with prior history of fragility fractures, or patients with 10-year probability of greater than 3% at hips or greater than 20% of suffering major osteoporotic fractures. Recommend continued optimization of calcium and vitamin D intake through dietary means and/or supplementation and regular exercise. Consider pharmacologic therapy for osteopenia with increased fracture risk. Follow-up bone density reading in 2 years if therapy initiated to assess therapeutic efficacy. Bessie Fitzgerald PA-C [facility] 11/03/2024 Narrative 11/03/2024 9:24 AM CHILDREN'S MINISTRY DIRECTOR For Patients: Results are automatically released to your [facility] account once available, in compliance with federal regulations. This means that you may see your results before your provider has had a chance to review them. Please allow 2-3 business days for your provider to comment on the results. XR DXA Bone Mineral Density (BMD) EXAM LOCATION: [address] [address] PATIENT NAME: Areli Barillas DATE OF : 1945 EXAM DATE: 11/02/2024 REQUESTING PROVIDER: Maris Don PA GENDER AT : female HEIGHT: 5' (10/25/2024) WEIGHT: 144 lb 10 oz (10/25/2024) MENOPAUSAL STATUS: Postmenopausal RACE/ETHNICITY: White RISK FACTORS: White Race CURRENT MEDICATION FOR BONE LOSS: NONE INDICATION: Post-Menopause COMPARISON DATE(S): None DXA scans are compared to prior studies for a patient only when the two (or more) studies were performed on the same scanner. It is not possible to compare data generated on one scanner to data from another because there are not standards in DXA equipment. This applies even if the two scanners are made by the same operational trainer. PROCEDURE: Dual-energy x-ray absorptiometry performed with routine technique. Reporting is completed in the form of a T-score. The T-score represents the standard deviation from peak bone mass based on young healthy adult. A Z-score is used for diagnosis in premenopausal women, and for men under the age of 50. FINDINGS: RESULT LUMBAR SPINE L1 - L4 BMD: 1.176 g/cm2 T-Score: - 0.2 Z-Score: + 1.6 Change from prior: None RESULTS FEMUR Left femoral neck BMD: 0.707 g/cm2 T-Score: - 2.4 Z-Score: - 0.4 Change from prior: None Right femoral neck BMD: 0.724 g/cm2 T-Score: - 2.3 Z-Score: - 0.2 Change from prior: None Left hip BMD: 0.813 g/cm2 T-Score: - 1.5 Z-Score: + 0.3 Change from prior: None Right hip BMD: 0.874 g/cm2 T-Score: - 1.1 Z-Score: + 0.8 Change from prior: None WHO criteria: Normal: T-score at or above -1 SD Osteopenia: T-score between -1.1 and -2.4 SD Osteoporosis: T-score at or below -2.5 SD FRAX RISK CALCULATION (USED FOR OSTEOPENIA ONLY): 10-year probability of major osteoporotic fracture: 17.3%. 10-year probability of hip fracture: 5.6%. us Maris JAIMES DEXA Final Resu lt * ANTI HCV (10/10/2023 1:26 PM CHILDREN'S MINISTRY DIRECTOR) Pathologist [facility] HEPATITIS C ANTIBODY Non-Reacti ve Non-React mikki 10/10/2023 9:34 PM CHILDREN'S MINISTRY DIRECTOR [facility] Comment:Please note, per www .CDC.gov: If a patient is known to be at high risk of HCV infection, or is symptomatic, and the physician's suspicion of HCV infection is high, HCV RNA testing is often employed and is of diagnostic value, even after an initial negative anti-HCV test result. Blood BLOOD SPECIMEN / Unknown Venipuncture / Unknown 10/10/2023 1:26 PM CHILDREN'S MINISTRY DIRECTOR 10/10/2023 1:28 PM CHILDREN'S MINISTRY DIRECTOR us Maris JAIMES SEND OUTS Final Resu lt [facility] [address] [place] [address], [place] from Last 3 Months or Most Recently Relevant to Health Maintenance Insurance MEDICARE PART A HB ONLY MEDICARE PART B HB ONLY [employer] [place] [place] HB ONLY [place] [place] [id number] Advance Directives Documents on File Type Date Recorded Patient Propagator Expl anation Healthcare Directive 04/19/2025 1:35 PM sig luana 04/19/25 Healthcare Directive 03/31/2023 023 * Full Code (Latest Code Status on File) Date Activated Date Inactivated Comments 10/25/2024 8:37 AM 10/25/2024 2:44 PM Question Answer Comments Code Status Discussion: Discussed * Full Code Date Activated Date Inactivated Comments 04/09/2023 11:25 AM 04/09/2023 7:56 PM Question Answer Comments Code Status Discussion: Unable to Assess Preferences, Provider to review later Care Teams Firewall Security Engineer Relationship Specialty Start Date End Date Maris Don PA [address] [place] [address] PCP - General Physician Leather Finisher 10/20/23 [place] [address] [place] [address] Rheumatology 03/09/25
--- OUTSIDE RECORDS SUMMARY | 2025-05-25 13:08 | XMS_ITS | Clinical Summary ---
Author Organization [facility] Address [address], [place] [address] Care Team Providers Care Cook Frozen Dessert Name Role Phone Kourtney Ca MD Primary Care Provider [phone] Source Comments You are receiving this document as you are listed as the primary care provider,follow-up provider, or the patient has been referred to you for consultation.This is in compliance with the Medicare and[employer] Health[employer] EHR Incentive Program,which states Providers who transition their patient to another setting of careor provider of care or refers their patient to another provider of care shouldprovide summary care record for each transition of care or referral. [facility] Allergies Active Allergy Reactions Criticality Noted Date Comments Codeine Low 02/18/2012 PN: nausea Monosodium Glutamate 11/12/2018 Terbinafine Rash 02/18/2012 Medications levothyroxine (SYNTHROID) 75 MCG tablet Take 75 mcg by mouth daily. 1/2 tab five days a week. 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 Nonspecific immunological findings 02/18/2012 Overview (07/09/2017): Other and unspecified nonspecific immunological findings Hypothyroidism 02/18/2012 Overview (07/09/2017): Unspecified hypothyroidism Family History Medical History Relation Name Comments Parkinsonism Father Diabetes Mother Heart Disease Mother Relation Name Status Comments Father Mother Social History Tobacco Use Types Packs/Day Years Used Date Smoking Tobacco: Never Smokeless Tobacco: Never Alcohol Use Standard Drinks/Week Comments Not Currently 0 (1 standard drink = 0.6 oz pur e alcohol) Comments Unknown Sex and Gender Information Value Date Recorded Sex Assigned at Not on file Legal Sex Female 2:37 PM CDT Gender Identity Not on file Sexual Orientation Not on file Occupation Industry Job Start Date Job End Date Retired Not on file Not on file Not on file Last Filed Vital Signs Vital Sign Reading Time Taken Comments Blood Pressure 129/62 12/11/2018 1:04 PM AIRLINE PILOT Pulse 77 12/11/2018 1:04 PM AIRLINE PILOT Temperature - - Respiratory Rate 16 11/27/2018 2:45 PM AIRLINE PILOT Oxygen Saturation 99% 11/27/2018 2:45 PM AIRLINE PILOT Inhaled Oxygen Concentration - - Weight 66.2 kg (146 lb) 12/11/2018 1:04 PM AIRLINE PILOT Height 156.2 cm (5' 1.5) 12/11/2018 1:04 PM AIRLINE PILOT Body Mass Index 27.14 12/11/2018 1:04 PM AIRLINE PILOT Plan of Treatment Health Maintenance Due Date Last Done Comments Hep C Screening (Preventive Services) 1945 Medicare Annual Wellness Visit 1945 Dexa 02/24/2012 Zoster/Shingles Vaccine (2 o f 3) 11/09/2012 09/14/2012 Pneumococcal Vaccine 50+ Yrs (2 of 2 - PCV) 09/14/2013 09/14/2012 RSV Vaccine (1 - 1-dose 75+ series) 2022 COVID-19 Vaccine (2 - 2023-2 5 season) 2024 03/20/2021 Influenza Vaccine (#1) 2025 4, 08/18/2013, 08/14/2012 DTaP/Tdap/Td Vaccine (2 - Tdap) 10/01/2026 10/01/2016, 05/03/2011, 05/19/2000 HepA Vaccine Aged Out No longer eligi ble based on patient's age to complete this topic HepB Vaccine Aged Out No longer eligi ble based on patient's age to complete this topic Hib Vaccine Aged Out No longer eligi ble based on patient's age to complete this topic IPV (Polio) Vaccine Aged Out No longe r eligible based on patient's age to complete this topic MCV4 Vaccine Aged Out No longer eligi ble based on patient's age to complete this topic Meningococcal B Vaccine Aged Out No l onger eligible based on patient's age to complete this topic Insurance MEDICARE MANAGED CARE BC [facility] Care Teams Cook Frozen Dessert Relationship Specialty Start Date End Date Kourtney Ca MD [address] [place] [address] PCP - General 03/10/12
[2025-05-25 13:17] VITALS: BP 131/80; PULSE 89; RESP 16; TEMP 35.8; O2SAT 96; BMI 28.5
--- NOTE | 2025-05-25 14:07 | ED.GENADULT ---
HPI - General Adult General Chief complaint: Unspecified Complaint, Adult Stated complaint: medication pill stuck on back of throat Time Seen by Provider: 05/25/25 13:11 Source: patient Mode of arrival: ambulatory Limitations: no limitations History of Present Illness HPI narrative: 80-year-old female coming in today concerned about a pill being stuck in her throat. This occurred approximately an hour and half ago. She states that she feels a pill in her throat. She has not been drooling and is able to manage her secretions. States that about an hour and half ago she tried to drink water and had this but that back out again. She denies feeling short of breath and has no difficulty breathing or speaking. The tablet was half of a tablet of Valtrex which is quite a sizable pill. Related Data Home Medications ?Medication ?Instructions ?Recorded ?Confirmed triamcinolone acetonide 0.1 % 1 applic topical PRN 04/01/23 05/25/25 topical ointment Previous Rx's ?Medication ?Instructions ?Recorded levothyroxine 75 mcg tablet 75 mcg PO DIRECTED #54 tabs 09/24/22 valacyclovir 1 gram tablet 1,000 mg PO TID 7 days #21 tabs 05/25/25 (Valtrex) Allergies Allergy/AdvReac Type Severity Reaction Status Date / Time terbinafine Allergy Intermediate loss of Verified 05/25/25 13:30 taste, subcutanious lupas monosodium glutamate Allergy Unknown Verified 05/25/25 13:30 codeine AdvReac Mild Nausea Verified 05/25/25 13:30 Review of Systems Status of ROS: Reports: 6 or more systems reviewed and unremarkable except as noted in History and below 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) ?L93.2 - Other local lupus erythematosus (ICD-10) Surgical History History of stapedectomy (05/01/11) ?Z90.09 - Acquired absence of other part of head and neck (ICD-10) History of laparoscopic cholecystectomy (05/01/11) ?Z90.49 - Acquired absence of other specified parts of digestive tract (ICD-10) History of bilateral cataract extraction ?Z98.41 - Cataract extraction status, right eye (ICD-10) ?Z98.42 - Cataract extraction status, left eye (ICD-10) Social History Smoking Status: Never smoker Do you use any of these nicotine containing products: None How often do you have a drink containing alcohol: never AUDIT-C Alcohol total score: 0 Non-prescribed substance use: denies use Exam Narrative: Exam Narrative: Well-nourished elderly female in no acute distress. Voice sounds normal and she speaks and breathes without difficulty. Patient is vitally stable. Oropharynx appears normal without any visible foreign objects. Neck is soft without any obvious masses. Her skin is well perfused. Alert and oriented x3. Const: Vital Signs, click to edit/add: Vital Signs - 24 hr 05/25/25 13:17 05/25/25 14:13 Temperature 96.5 F L 98.7 F Pulse Rate [Left F emoral] 89 88 Respiratory Rate 16 18 Blood Pressure [Le ft Upper Arm] 131/80 136/79 Pulse Oximetry 96 94 Oxygen Delivery Me thod Room Air Room Air Course Course ED Course: Patient was given sublingual nitro followed by EZ gas. This seem to help the patient. She felt better afterwards. She was able to drink water without difficulty. Requesting to be discharged. Vital Signs Vital signs: Initial Vital Signs Temperature 96.5 F L 05/25/25 13:17 Temperature Source Temporal Artery Scan 05/25/25 13:17 Pulse Rate 89 05/25/25 13:17 Respiratory Rate 16 05/25/25 13:17 Blood Pressure 131/80 05/25/25 13:17 Blood Pressure Mean 97 05/25/25 13:17 Blood Pressure Position Sitting 05/25/25 13:17 Pulse Oximetry 96 05/25/25 13:17 Oxygen Delivery Method Room Air 05/25/25 13:17 Vital Signs Temperature 96.5 F L 05/25/25 13:17 Pulse Rate 89 05/25/25 13:17 Respiratory Rate 16 05/25/25 13:17 Blood Pressure 131/80 05/25/25 13:17 Pulse Oximetry 96 05/25/25 13:17 Oxygen Delivery Method Room Air 05/25/25 13:17 Temperature 98.7 F 05/25/25 14:13 Pulse Rate 88 05/25/25 14:13 Respiratory Rate 18 05/25/25 14:13 Blood Pressure 136/79 05/25/25 14:13 Pulse Oximetry 94 05/25/25 14:13 Oxygen Delivery Method Room Air 05/25/25 14:13 Medications Administered Medications: Discontinued Medications Generic Name Dose Route Start Last Admin Trade Name Freq PRN Reason Stop Dose Admin Nitroglycerin 0.4 mg 05/25/25 13:49 05/25/25 14:08 Nitroglycerin 0.4 Mg Tab.Subl SUBLINGUAL 05/25/25 13:50 0.4 mg ONCE ONE Administration Medical Decision Making MDM Narrative Medical decision making narrative: Foreign body stuck in esophagus, resolved with treatment. We discussed cutting the pills down into smaller pieces or crushing them and putting them in applesauce. Discharge Plan Discharge Clinical Impression: Esophageal foreign body Patient Disposition: Home, Self-Care Condition: Improved Prescriptions: No Action triamcinolone acetonide 0.1 % ointment 1 applic topical PRN Rx Instructions: APPLY TO AFFECTED AREA levothyroxine 75 mcg tablet 75 mcg PO DIRECTED Qty: 54 3RF Rx Instructions: take 75mg two days per week and take 37.5mg daily for other 5 days valacyclovir [Valtrex] 1 gram tablet 1,000 mg PO TID 7 Days Qty: 21 0RF Follow Up/Referrals: Kourtney Ca MD [Primary Care Provider, Internal Medicine] Stand Alone Forms: Remote Info Instructions
[2025-05-25] MEDS: NITROGLYCERIN 0.4 MG TAB.SUBL SUBLINGUAL (14:08)
[2025-05-25 14:13] VITALS: BP 136/79; PULSE 88; RESP 18; TEMP 37.1; O2SAT 94
== END 2025-05-25 14:56 | disposition home or self-care (01) ==
PROVIDERS: Emergency Provider Family Medicine; PCP Internal Medicine
DX: T18.108A Unspecified foreign body in esophagus causing other injury, initial encounter (principal)
CPT/HCPCS: 99283; 99284; A9270

== ENCOUNTER 2025-10-29 15:45 | Emergency (ER) | payer MEDICARE, BC, SELFPAY ==
--- OUTSIDE RECORDS SUMMARY | 2025-10-29 15:48 | XMS_ITS | Clinical Summary ---
Author Organization [facility] Address [address] [place] [address] Care Team Providers Care Cottrell Operator Name Role Phone Maris Don Primary Care Provider [phone] Andreia Arnold MD Unavailable [phone] Allergies Active AllergyReactionsCriticalityNoted DateCommentsCodeine*QhfwexlVkk26/03/2012 PN: nausea Monosodium Glutamate*Otcsnyr5611/12/20181538CvtefgwtufjDmcx15/03/2012 Loss of taste Medications * This document contains information received from the source organization and may not represent a complete record from that organization. MedicationSigDispense QuantityRefillsLast FilledStart DateEnd DateStatus medication order composer Indications:PTSD (post-traumatic stress disorder)NN [place]-3 - 1 tsp daily with food (omegas 1560 mg - EPA 745 mg, DHA 500 mg) NN vitamin D 5000 IU 3x per week Solary Vitamin B complex with c - 1 chewable tablet daily Natural Calm mag citrate - 1.5-2 tsp daily HS Natural Factors suntheanine 200 mg HS5Active medication order composer Indications:Herpes zoster with ophthalmic complication, unspecified herpes zoster eye diseasePrescribed through jordan man: -Prednisolone acetate 1% -1 drop twice daily left eye -Brimonidine 0.2% -1 drop twice daily left eye -Timolol 0.5% -1 drop twice a day left eye -Moxifloxacin 0.5% -1 drop twice a day left eye -Erythromycin 0.5% ointment - 1/4 inch 4 times a day left eye -Artificial tears -1 drop 4 times daily -Valtrex 1000 mg -1 tablet oral twice daily by mouth5Active levothyroxine (SYNTHROID) 75 mcg tablet Indications:Hypothyroidism, unspecified typeTake 1/2 tablet PO qd 5 days per week and 1 tablet PO qd 2 days per week 90 Tablet tive levothyroxine (SYNTHROID) 75 mcg tablet Indications:Hypothyroidism, unspecified typeTake 1/2 tablet PO qd 5 days per week and 1 tablet PO qd 2 days per week 90 Tablet Discontinued(Reorder (E-cancel not sent)) theanine 100 mg chew Chew by mouth.Discontinued(Other - add note to specify (E- cancel not sent)) prednisoLONE acetate 1% ophthalmic (ECONOPRED PLUS, PRED FORTE, OMNIPRED) suspension INSTILL 1 DROP INTO THE LEFT EYE THREE TIMES DAILY Discontinued(*Medication adjustment) cholecalciferol (Vitamin D3) (Vitamin D-3) 5,000 unit tab tablet One gummy three times a weekDiscontinued(*Patient states no longer taking) vitamin B complex (B-COMPLEX VITAMIN) tablet Take 1 Tablet by mouth once daily.Discontinued(Other - add note to specify (E-cancel not sent)) Active Problems ProblemNoted DateDiagnosed DateHerpes zoster with ophthalmic complication 10/26/2025Leg length hplllwubrra63/10/2025Scoliosis of thoracolumbar spine 10/26/2025hronic left hip pain10/26/2025Hypothyroidism (acquired)10/26/2025 Generalized osteoarthritis of multiple sites04/20/2025Sjogren's syndrome 01/24/2025Esophageal web determined by twawraebr73Villous adenoma of yznsyzdu77 Overview (10/25/2024): PT was last seen by GI in 2019 and had discussed doing Whipple surgery vs monitoring, PT chose monitoring and has had no repeat EGD since 2019 Esophageal /[id number] Overview (10/25/2024): dysphagia since per chad avendano note S/P iplojyhydolmqok11/09/2024Osteopenia of multiple sites10/22/2024 Overview (11/09/2024): Hips with high risk fracture score-she would like to continue supportive management for treatment. Maris Don PA-C, Family Medicine.....................11/09/2024 8:34 AM Post concussive /04/7146Gaficannlye53/04/2023Depression, recurrent 3PTSD (post-traumatic stress disorder)10/17/2023Mixed hearing loss, kyfjgdwln72/17/2023utaneous lupus rprgqktbwjxry42/03/2012Hypothyroidism 02/18/2012 Overview (10/25/2024): Unspecified hypothyroidism Nonspecific immunological gjjvvuga97/03/2012 Overview (10/25/2024): Other and unspecified nonspecific immunological findings Cholesteatoma of epitympanic recess of right middle earTympanic membrane perforation, right Encounters DateTypeDepartmentCare ClrgXbiuulpbxtw11/10/2025Results Follow-Up [facility] [address] [facility] [place] [address] Maris Don PA 10/24/2025 10:45 AM CSTAncillary Procedure [facility] [address] [facility] [place] [address] Wpyrsxu0710/24/2025 9:30 AM CSTOffice Visit [facility] [address] [place] [address] Maris Don PA Medicare ANNUAL (subsequent) Visit10/24/20256135Ldtjoz27/25/2025 11:00 AM CSTOffice Visit [address] [address] Crhis, [facility] (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; 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, 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)10/11/2025Travel 10/05/2025 12:15 PM CSTOffice Visit [facility] [address] [place] [address] Katerine Montoya PA Follow Up10/05/20257263Yubhwr08/13/2025 10:30 AM CSTOffice Visit [address] [address] Maris Perez AuD Hearing Aid (recheck)09/29/20258880Mpuigd88/06/2025 11:30 AM CSTOffice Visit [address] [address] Maris Perez AuD Hearing Aid (recheck)09/22/20259870Cdewwd61/30/2025 11:30 AM CDTOffice Visit [address] [address] Maris Perez AuD Hearing Aid (Needs adjustments)09/15/20259368Xakyxu06/23/2025 10:00 AM CDTOffice Visit [address] [address] Maris Perez AuD Hearing Aid (fitting)09/08/20258304Empfsh08/15/2025 11:00 AM CDTOffice Visit [address] [address] Maris Perez AuD Hearing Aid (Discuss next steps/)08/31/20254142Kpbzwa55/10/2025Orders Only [facility] Scanner 1 scan: (1-Ord) [place] [facility] RNLDFZNMBFT81/06/2025 4:00 PM CDTOffice Visit [address] [address] Maris Perez AuD Hearing Aid (Recheck - problems pairing to phone)08/22/2025 9:30 AM CDTOrders Only [facility] [address] [place] [address] [place], [place] <No scans attached>08/22/2025Orders Only [facility] [address] [facility] [address] [place] [address] Andreia Arnold MD Lab08/22/20255428Famdpu21/01/2025 1:00 PM CDTOffice Visit [address] [address] Maris Perez AuD Hearing Aid (fitting)08/17/20251248Zgptjr85/24/2025 12:30 PM CDTOffice Visit [address] [address] Maris Perez AuD Hearing Aid (Fitting Signia - deferred)08/10/20250043Cbqsps88/22/2025 2:30 PM CDT Office Visit [facility] [address] [place] [address] Maris Don PA Results (Wants to discuss difference between two MRI's she had a year apart-also want PT for left hip pain)08/08/20255644Wkbmmi88/16/2025Telephone [address] [address] Maris Perez AuD Hearing Aidfrom Last 3 Months Immunizations ImmunizationAdministration DatesNext DueInfluenza, High-dose Inactivated 10/26/2014Influenza, IIV3 (Age 6-35 mos)08/18/2013,08/14/2012Pneumococcal Poly,23-Valent (Pneumovax)09/14/2012Td (Age >=7 Years)05/03/2011,05/19/2000Tdap 10/01/2016Zoster (Zostavax-ZVL, live)09/14/2012 Family History Medical HistoryRelationNameCommentsParkinsonismFatherAlcoholismMotherDepression MotherDiabetesMotherCancer-breastNo Family HistoryCancer-ovarianNo Family HistoryRelationNameStatusCommentsFatherMother Social History Tobacco UseTypesPacks/DayYears UsedDateSmoking Tobacco: NeverPassive Smoke Exposure: NeverSmokeless Tobacco: Never Tobacco Cessation:Counseling Given: Yes Alcohol UseStandard Drinks/WeekCommentsNot Currently0 (1 standard drink = 0.6 oz pure alcohol)Extremely RarePHQ-2AnswerDate RecordedPHQ-2 TOTAL CXIDQ54512/25/2024 Social ConnectionsAnswerDate RecordedDo you often feel lonely or isolated from those around you?Financial Resource StrainAnswerDate Recorded Difficulty of Paying Living Odzsfsso358/08/2025Difficulty of Paying Living ExpensesNot on file10/24/2025Food InsecurityAnswerDate RecordedDo you worry your food will run out before you are able to buy more?Transportation NeedsAnswerDate RecordedDoes lack of transportation keep you from medical appointments?Does lack of transportation keep you from work, meetings or getting things that you need?Housing StabilityAnswerDate Recorded What is your housing situation today?UtilitiesAnswerDate RecordedDo you have trouble paying for utilities (for example, heat, electricity, water, phone)?CommentsNoSex and Gender InformationValueDate Recorded Sex Assigned at BirthNot on fileLegal HeeRyjicw99/14/2013 8:29 AM CSTGender IdentityNot on fileSexual OrientationNot on file Last Filed Vital Signs Vital SignReadingTime TakenCommentsBlood Sszjmjdd335/8210/24/2025 9:39 AM MANAGER MEDICARE Wblgg393110/24/2025 9:39 AM VAGYxjyqhjalnl07.6 ??C (97.9 ??F)10/25/2024 9:22 AM CSTRespiratory Ljac308512/26/2023 12:15 PM CSTOxygen Mgawbwbfjv71%10/24/2025 9:39 AM CSTInhaled Oxygen Concentration--Dgyflo87.3 kg (144 lb)10/24/2025 9:39 AM MANAGER MEDICARE Xjzptv629.1 cm (4' 11.88)10/24/2025 9:39 AM CSTBody Mass Index28.23112/25/2024 9:39 AM MANAGER MEDICARE Plan of Treatment DateTypeDepartmentCare Team (Latest Contact Info)Jsjohalvpxb22/16/2025 11:45 AM CSTAncillary Procedure [facility] [address] [place] [address] 12/09/2025 10:00 AM CSTOffice Visit [facility] [address] [place] [address] Mena Haque L Ac [address] [place] [address] 12/14/2025 12:15 PM CSTOffice Visit [facility] [address] [place] [address] Katerine Montoya PA [address] [place] [address] Health MaintenanceDue DateLast DoneCommentsZoster (shingles) series for age 50+ (2 of 3)Pneumococcal series for age 50+ (2 of 2 - PCV) RSV vaccine for adults or (1 - 1-dose 75+ series) 2COVID-19 vaccine series (3 - season)/11/2020, 03/20/2021Influenza Vaccine (#1), 08/18/2013, 08/14/2012 Tetanus sbvtary52, 05/03/2011, 05/19/2000BMI (ht and wt on same day) for age 18+/06/2025, 08/08/2025, 04/20/2025, Additional history existsDepression screening for age 12+6112/25/2024, 11/02/2024, 10/21/2024, Additional history existsMedicare Wellness for age 65+10/25/2026 10/24/2025, 10/21/2024, 10/17/2023Hepatitis C screening for age 18-79Completed 3DEXA/DXA scan for age 65+Byyumgwma84/17/2024, 02/11/2019Hepatitis B series for 19+Aged OutNo longer eligible based on patient's age to complete this topic Procedures Procedure NamePriorityDate/TimeAssociated DbyasnvarTgnzzrizKQIDzfofhi22/08/2025 10:50 AM MANAGER MEDICARE Hypothyroidism (acquired) HEMOGLOBIN S8UUfnyynu52/08/2025 10:50 AM MANAGER MEDICARE Prediabetes COMP METABOLIC AFLCHZmodtsk59/08/2025 10:50 AM MANAGER MEDICARE Prediabetes LIPID PANEL W REFLEX MEASURED EJFVjuuicc66/08/2025 10:50 AM MANAGER MEDICARE Hyperlipidemia, unspecified hyperlipidemia type XR HIP 1 VIEW W PELVIS WVRPOryangw43/08/2025 10:44 AM MANAGER MEDICARE Chronic left hip pain SCAN-EYE EXAM08/26/2025 12:00 AM CDT CBC WITH AUTO YBEKNDYOJZBTJpgcarh72/06/2025 9:43 AM CDT Sjogren's syndrome with keratoconjunctivitis sicca (HC) URINALYSIS TSSCEHCIHVAFlzlyty61/06/2025 9:43 AM CDT Sjogren's syndrome with keratoconjunctivitis sicca (HC) Generalized osteoarthritis of multiple sites PROTEIN/CREAT RATIO,GKOYEGzxeqlq81/06/2025 9:43 AM CDT Sjogren's syndrome with keratoconjunctivitis sicca (HC) PTH,OGCFUSFupzcld07/06/2025 9:43 AM CDT Sjogren's syndrome with keratoconjunctivitis sicca (HC) Chondrocalcinosis C3 XBLPYHVGPSOqsrvbw17/06/2025 9:43 AM CDT Sjogren's syndrome with keratoconjunctivitis sicca (HC) C4 ICXRWFQSMWWdxlvst87/06/2025 9:43 AM CDT Sjogren's syndrome with keratoconjunctivitis sicca (HC) DNA DOUBLE-STRANDED (DSDNA) ANTIBODIES BY CRIERIKA LUCILIAE IFARoutine 08/22/2025 9:43 AM CDT Sjogren's syndrome with keratoconjunctivitis sicca (HC) SEDIMENTATION AFWNCbsnuof43/06/2025 9:43 AM CDT Sjogren's syndrome with keratoconjunctivitis sicca (HC) C-REACTIVE EZNCDINTioqtzs58/06/2025 9:43 AM CDT Sjogren's syndrome with keratoconjunctivitis sicca (HC) COMP METABOLIC AIRSZHrvshtc31/06/2025 9:43 AM CDT Sjogren's syndrome with keratoconjunctivitis sicca (HC) CBC WITH AUTO PBOSXKKVKNRAEnnhvwh96/06/2025 9:43 AM CDT Sjogren's syndrome with keratoconjunctivitis sicca (HC) XR DXA BONE DENSITY 2 SITES TFXINOgbigbg09/17/2024 11:33 AM MANAGER MEDICARE Postmenopausal ANTI JVVTixocvm53/24/2023 1:26 PM MANAGER MEDICARE Need for hepatitis C screening test from Last 3 Months or Most Recently Relevant to Health Maintenance Results * (ABNORMAL) HEMOGLOBIN A1C (10/24/2025 10:50 AM MANAGER MEDICARE)ComponentValueRef RangeTest MethodAnalysis TimePerformed AtPathologist SignatureHEMOGLOBIN A1C5.9(H)<5.7 % 10/25/2025 4:26 AM CSTQUEST DIAGNOSTICSComment: For someone without known diabetes, a hemoglobin A1c value between 5.7% and 6.4% is consistent with prediabetes and should be confirmed with a follow-up test. For someone with known diabetes, a value <7% indicates that their diabetes is well controlled. A1c targets should be individualized based on duration of diabetes, age, comorbid conditions, and other considerations. This assay result is consistent with an increased risk of diabetes. Currently, no consensus exists regarding use of hemoglobin A1c for diagnosis of diabetes for children. Specimen (Source)Anatomical Location / LateralityCollection Method / Volume Collection TimeReceived TimeBloodBLOOD SPECIMEN / UnknownQuest Collect / Unknown 10/24/2025 10:50 AM CST10/24/2025 10:50 AM MANAGER MEDICARE Narrative Authorizing ProviderResult TypeResult StatusJennstefany Don PACHEMISTRYFinal ResultPerforming OrganizationAddressCity/State/ZIP CodePhone Number [facility] [address] [place] [address], * (ABNORMAL) LIPID PANEL W REFLEX MEASURED LDL (10/24/2025 10:50 AM MANAGER MEDICARE) ComponentValueRef RangeTest MethodAnalysis TimePerformed AtPathologist SignatureCHOLESTEROL, DXSCX505(H)<200 mg/dL10/25/2025 5:31 AM CSTQUEST WXLMFTZWYRBPDNSFLZINBXZZ24<150 mg/dL10/25/2025 5:31 AM CSTQUEST DIAGNOSTICSHDL WONZZUXGVFD32> OR = 50 mg/dL10/25/2025 5:31 AM CSTQUEST DIAGNOSTICSNON HDL SISZXIKAGAN078(H)<130 mg/dL (calc)10/25/2025 5:31 AM CST[facility] Comment: For patients with diabetes plus 1 major ASCVD risk factor, treating to a non-HDL-C goal of <100 mg/dL (LDL-C of <70 mg/dL) is considered a therapeutic option. CHOL/HDLC RATIO3.5<5.0 (calc)10/25/2025 5:31 AM CSTQUEST [facility]NO[facility]ICS LDL-ROGOXFEPVQX609(H)mg/dL (calc)10/25/2025 5:31 AM CSTQUEST DIAGNOSTICSComment: Reference range: <100 Desirable range <100 mg/dL for primary prevention; <70 mg/dL for patients with CHD or diabetic patients with > or = 2 CHD risk factors. LDL-C is now calculated using the Ana calculation, which is a validated novel method providing better accuracy than the Friedewald equation in the estimation of LDL-C. Vu SS et al. ROGELIO. 2013;310(79): 3940-1111 (http://education.AquaGenesis/faq/EBX695) Specimen (Source)Anatomical Location / LateralityCollection Method / Volume Collection TimeReceived TimeBloodBLOOD SPECIMEN / UnknownQuest Collect / Unknown 10/24/2025 10:50 AM CST10/24/2025 10:50 AM MANAGER MEDICARE Narrative Authorizing ProviderResult TypeResult StatusMaris Don PACHEMISTRYFinal ResultPerforming OrganizationAddressCity/State/ZIP CodePhone Number [facility] [address] [address], * TSH (10/24/2025 10:50 AM MANAGER MEDICARE)ComponentValueRef RangeTest MethodAnalysis Time Performed AtPathologist SignatureTSH1.500.40 - 4.50 mIU/L112/26/2024 8:11 AM CSTQUEST DIAGNOSTICSSpecimen (Source)Anatomical Location / Laterality Collection Method / VolumeCollection TimeReceived TimeBloodBLOOD SPECIMEN / UnknownQuest Collect / Sfsnxcq0210/24/2025 10:50 AM CST10/24/2025 10:50 AM MANAGER MEDICARE Narrative Authorizing ProviderResult TypeResult StatusMaris Don PACHEMISTRYFinal ResultPerforming OrganizationAddressK[facility]/ZIP CodePhone Number [facility] [address] [address], * (ABNORMAL) COMP METABOLIC PANEL (10/24/2025 10:50 AM MANAGER MEDICARE) Only the most recent of2 resultswithin the time period is included. ComponentValueRef RangeTest MethodAnalysis TimePerformed AtPathologist Signature UYAQOL138061 - 146 mmol/L112/26/2024 5:31 AM CSTQUEST DIAGNOSTICSPOTASSIUM4.33.5 - 5.3 mmol/L112/26/2024 5:31 AM CSTQUEST NNQOJXAPDKAWTNHZPJV94470 - 110 mmol/L 10/25/2025 5:31 AM CSTQUEST DIAGNOSTICSCARBON IINMPFV5379 - 32 mmol/L112/26/2024 5:31 AM CSTQUEST EUIYPKMKFBKLBOYNKN1933 - 99 mg/dL10/25/2025 5:31 AM CSTQUEST DIAGNOSTICSComment: ? Fasting reference interval CALCIUM9.68.6 - 10.4 mg/dL10/25/2025 5:31 AM CSTQUEST DIAGNOSTICSCREATININE1.00 0.60 - 1.00 mg/dL10/25/2025 5:31 AM CSTQUEST DIAGNOSTICSBUN/CREATININE RATIO26 (H)6 - 22 (calc)10/25/2025 5:31 AM CSTQUEST CBDOBDNMEDPVJXF27(L)> OR = 60 mL/min/1.42c56410/25/2025 5:31 AM CSTQUEST DIAGNOSTICSALBUMIN4.23.6 - 5.1 g/dL 10/25/2025 5:31 AM CSTQUEST DIAGNOSTICSPROTEIN, TOTAL7.16.1 - 8.1 g/dL10/25/2025 5:31 AM CSTQUEST DIAGNOSTICSBILIRUBIN, TOTAL0.30.2 - 1.2 mg/dL10/25/2025 5:31 AM CSTQUEST DIAGNOSTICSALKALINE GWFLQSMEXPP1961 - 153 U/L112/26/2024 5:31 AM MANAGER MEDICARE [facility] QHNGYOLYWBMIDP781 - 29 U/L112/26/2024 5:31 AM CSTQUEST NKDAMDLAOOVXAC1067 - 35 U/L112/26/2024 5:31 AM CSTQUEST DIAGNOSTICSUREA NITROGEN (BUN)26(H)7 - 25 mg/dL10/25/2025 5:31 AM CSTQUEST DIAGNOSTICSGLOBULIN2.91.9 - 3.7 g/dL (calc) 10/25/2025 5:31 AM CSTQUEST DIAGNOSTICSALBUMIN/GLOBULIN RATIO1.41.0 - 2.5 (calc) 10/25/2025 5:31 AM CSTQUEST DIAGNOSTICSSpecimen (Source)Anatomical Location / LateralityCollection Method / VolumeCollection TimeReceived TimeBloodBLOOD SPECIMEN / UnknownQuest Collect / Pxnwrvu57/06/2025 10:50 AM CST10/24/2025 10:50 AM MANAGER MEDICARE Narrative Authorizing ProviderResult TypeResult StatusMaris Don PACHEMISTRYFinal ResultPerforming OrganizationAddressCity/State/ZIP CodePhone Number [facility] [address] [place] [address], * XR HIP 1 VIEW W PELVIS LEFT (10/24/2025 10:44 AM MANAGER MEDICARE)Anatomical Region LateralityModalityHIPS, HIPL, PelvisComputed RadiographySpecimen (Source) Anatomical Location / LateralityCollection Method / VolumeCollection Time Received Time10/24/2025 3:47 PM MANAGER MEDICARE Narrative 10/24/2025 3:47 PM MANAGER MEDICARE For Patients: As a result of the Cures Act, medical imaging exams and procedure reports are released immediately into your electronic medical record. You may view this report before your referring provider. If you have questions, please contact your health care provider. Indication: Chronic left hip pain Technique: Pelvis and left hip 2 views Comparison: None Findings: Mild spurring at both hips with chondrocalcinosis. No fracture or intrinsic osseous lesion. Mild degenerative changes at the sacroiliac joints. Impression: Mild degenerative joint disease left hip. Dictated by Alber Obrien MD @ 10/24/2025 3:47:06 PM (Electronically Signed) Procedure Note Alber Obrien MD - 10/24/2025 For Patients: As a result of the Cures Act, medical imagingexams and procedure reports are released immediately into your electronicmedical record. You may view this report before your referring provider.If you have questions, please contact your health care provider. Indication: Chronic left hip pain Technique: Pelvis and left hip 2 views Comparison: None Findings: Mild spurring at both hips with chondrocalcinosis. No fracture orintrinsic osseous lesion. Mild degenerative changes at the sacroiliacjoints. Impression: Mild degenerative joint disease left hip. Dictated by Alber Obrien MD @ 10/24/2025 3:47:06 PM (Electronically Signed) Authorizing ProviderResult TypeResult StatusMaris Don PAGENERAL IMAGING Final Result * SCAN-EYE EXAM (08/26/2025 12:00 AM CDT) Narrative Authorizing ProviderResult TypeResult StatusScannerOTHERFinal Result * SEDIMENTATION RATE (08/22/2025 9:43 AM CDT)ComponentValueRef RangeTest Method Analysis TimePerformed AtPathologist SignatureSED RATE BY MODIFIED WESTERGREN 25< OR = 30 mm/h1 3:35 AM CDTQUEST DIAGNOSTICSSpecimen (Source) Anatomical Location / LateralityCollection Method / VolumeCollection Time Received TimeBloodBLOOD SPECIMEN / UnknownQuest Collect / Nsozojn9208/22/2025 9:43 AM CDT1 9:43 AM CDT Narrative Authorizing ProviderResult TypeResult StatusAndreia Arnold MD HEMATOLOGYFinal ResultPerforming OrganizationAddressCity/State/ZIP CodePhone Number [facility] [place] [facility] [address], * CBC WITH AUTO DIFFERENTIAL (08/22/2025 9:43 AM CDT)ComponentValueRef RangeTest MethodAnalysis TimePerformed AtPathologist SignatureWHITE BLOOD CELL COUNT5.4 3.8 - 10.8 Thousand/uL08/23/2025 2:35 AM CDTQUEST DIAGNOSTICSRED BLOOD CELL COUNT3.853.80 - 5.10 Million/uL08/23/2025 2:35 AM CDTQUEST [facility]AGNO[facility]ICS LETFKQRDLM03.111.7 - 15.5 g/dL08/23/2025 2:35 AM CDTQUEST [facility] LXHJCBATWJ12.935.0 - 45.0 %08/23/2025 2:35 AM CDTQUEST JUISNNHJCTLPPE33.280.0 - 100.0 fL08/23/2025 2:35 AM CDTQUEST XQCSNYGTQJDGKD36.427.0 - 33.0 pg 08/23/2025 2:35 AM CDTQUEST NOEFVPKIZHZLERX06.732.0 - 36.0 g/dL08/23/2025 2:35 AM CDTQUEST DIAGNOSTICSComment: For adults, a slight decrease in the calculated MCHC value (in the range of 30 to 32 g/dL) is most likely not clinically significant; however, it should be interpreted with caution in correlation with other red cell parameters and the patient's clinical condition. RDW14.111.0 - 15.0 %08/23/2025 2:35 AM CDTQUEST DIAGNOSTICSPLATELET EXZTC735534 - 400 Thousand/uL08/23/2025 2:35 AM CDTQUEST DIAGNOSTICSMPV9.37.5 - 12.5 fL 08/23/2025 2:35 AM CDTQUEST HJQJXWHQLMVFZECBNOFPQR69.2%08/23/2025 2:35 AM CDT [facility] SESUVBNQMGJBHGEQVTDCPD71.2%08/23/2025 2:35 AM CDT[facility] MONOCYTES9.8%08/23/2025 2:35 AM CDTQUEST DIAGNOSTICSEOSINOPHILS3.5%08/23/2025 2:35 AM CDTQUEST DIAGNOSTICSBASOPHILS1.3%08/23/2025 2:35 AM CDT[facility] ABSOLUTE DVOTUDWRYRL54957183 - 7800 cells/uL08/23/2025 2:35 AM CDTQUEST DIAGNOSTICSABSOLUTE QKTOPLRQIEU6733253 - 3900 cells/uL08/23/2025 2:35 AM CDT [facility] ZPYKWMURN913643 - 950 cells/uL08/23/2025 2:35 AM CDT [facility] XMQFUOBXBJX33854 - 500 cells/uL08/23/2025 2:35 AM CDT [facility]AB[facility] BMVNEDZLM075 - 200 cells/uL08/23/2025 2:35 AM CDTQUEST DIAGNOSTICSSpecimen (Source)Anatomical Location / LateralityCollection Method / VolumeCollection TimeReceived TimeBloodBLOOD SPECIMEN / UnknownQuest Collect / Itbqvqc9908/22/2025 9:43 AM CDT1 9:43 AM CDT Narrative Authorizing ProviderResult TypeResult StatusGbemisirma Arnold MD HEMATOLOGYFinal ResultPerforming OrganizationAddressCity/State/ZIP CodePhone Number [facility] [address] [address], * URINALYSIS MICROSCOPIC (08/22/2025 9:43 AM CDT)ComponentValueRef RangeTest MethodAnalysis TimePerformed AtPathologist EfgnckeddCJX1-30-8, None Seen /HPF 08/22/2025 4:39 PM [facility] YCZHIGSZABXYG1-43-7, 3- 5, None Seen /HPF08/22/2025 4:39 PM [facility] LABORATORYBACTERIANone SeenNone Seen, Rare, Few Bacteria/HPF08/22/2025 4:39 PM [facility] LABORATORYEPITHELIAL CELLSNone SeenNone Seen, Few Epi/HPF08/22/2025 4:39 PM [facility] LABORATORYHYALINE CASTS0-20-2, 3-5 /LP08/22/2025 4:39 PM [facility] LABORATORYSpecimen (Source)Anatomical Location / Laterality Collection Method / VolumeCollection TimeReceived TimeUrineURINE SPECIMEN / UnknownNon-Blood / Uipecpm4908/22/2025 9:43 AM CDT1 9:43 AM CDT Narrative Authorizing ProviderResult TypeResult StatusGbsandra STREET Final ResultPerforming OrganizationAddressCity/State/ZIP CodePhone Number [facility] [address] [address], * PROTEIN/CREAT RATIO,URINE (08/22/2025 9:43 AM CDT)ComponentValueRef RangeTest MethodAnalysis TimePerformed AtPathologist SignaturePROTEIN QUANT,RAND URINE<6 1 - 14 mg/dL08/22/2025 4:31 PM [facility] CREAT,RANDOM URINE46.128.0 - 217.0 mg/dL08/22/2025 4:31 PM [facility] LABORATORYPROT/CREAT RATIO,UR08/22/2025 4:31 PM [facility] LABORATORYComment:Urine Protein below measurement range, unable to calculate.Specimen (Source)Anatomical Location / Laterality Collection Method / VolumeCollection TimeReceived TimeUrineURINE SPECIMEN / UnknownNon-Blood / Sociewv3708/22/2025 9:43 AM CDT1 9:43 AM CDT Narrative Authorizing ProviderResult TypeResult StatusAndreia Arnold MDURINE Final ResultPerforming OrganizationAddressty/State/ZIP CodePhone Number [facility] [address] [place] [phone], * C3 COMPLEMENT (08/22/2025 9:43 AM CDT)ComponentValueRef RangeTest Method Analysis TimePerformed AtPathologist SignatureCOMPLEMENT COMPONENT [id number] - 193 mg/dL08/23/2025 3:44 PM CDTQUEST DIAGNOSTICSSpecimen (Source)Anatomical Location / LateralityCollection Method / VolumeCollection TimeReceived Time BloodBLOOD SPECIMEN / UnknownQuest Collect / Jvqyurl5308/22/2025 9:43 AM CDT 08/22/2025 9:43 AM CDT Narrative Authorizing ProviderResult TypeResult StatusAndreia Arnold MD CHEMISTRYFinal ResultPerforming OrganizationAddressCity/State/ZIP CodePhone Number [facility] [address] [place] [address], [place] [phone] * C4 COMPLEMENT (08/22/2025 9:43 AM CDT)ComponentValueRef RangeTest Method Analysis TimePerformed AtPathologist SignatureCOMPLEMENT COMPONENT [id number] - 57 mg/dL08/23/2025 3:44 PM CDTQUEST DIAGNOSTICSSpecimen (Source)Anatomical Location / LateralityCollection Method / VolumeCollection TimeReceived Time BloodBLOOD SPECIMEN / UnknownQuest Collect / Temidep3808/22/2025 9:43 AM CDT 08/22/2025 9:43 AM CDT Narrative Authorizing ProviderResult TypeResult StatusAndreia Arnold MD CHEMISTRYFinal ResultPerforming OrganizationAddressCity/State/ZIP CodePhone Number [facility] [address] [place] [address], [place] [phone] * DNA DOUBLE-STRANDED (DSDNA) ANTIBODIES BY CRIERIKA LUCKELLY IFA (08/22/2025 9:43 AM CDT)ComponentValueRef RangeTest MethodAnalysis TimePerformed At Pathologist SignatureDNA (DS) SQLNQTRE2KM/mL08/24/2025 7:20 PM CDTQUEST DIAGNOSTICSComment: ? IU/mL ? Interpretation < or = 4 Negative ? 5-9 ? Indeterminate > or = 10 Positive Specimen (Source)Anatomical Location / LateralityCollection Method / Volume Collection TimeReceived TimeBloodBLOOD SPECIMEN / UnknownQuest Collect / Unknown 08/22/2025 9:43 AM CDT1 9:43 AM CDT Narrative Authorizing ProviderResult TypeResult StatusAndreia Arnold [facility] ResultPerforming OrganizationAddTor[facility] HospitalPhone Number [facility] [address] [address], [place] [phone] * C-REACTIVE PROTEIN (08/22/2025 9:43 AM CDT)ComponentValueRef RangeTest Method Analysis TimePerformed AtPathologist SignatureC-REACTIVE PROTEIN (MG/L)<3.0 <8.0 mg/L1 12:41 PM CDTQUEST DIAGNOSTICSSpecimen (Source)Anatomical Location / LateralityCollection Method / VolumeCollection TimeReceived Time BloodBLOOD SPECIMEN / UnknownQuest Collect / Mqezduu3708/22/2025 9:43 AM CDT 08/22/2025 9:43 AM CDT Narrative Authorizing ProviderResult TypeResult StatusAndreia Arnold [place] [facility] ResultPerforming OrganizationAdd[facility]/ZIP CodePhone Number [facility] [address] [place] [address], [place] [phone] * PTH,INTACT (08/22/2025 9:43 AM CDT)ComponentValueRef RangeTest MethodAnalysis TimePerformed AtPathologist SignaturePARATHYROID HORMONE, [id number] - 77 pg/mL08/23/2025 12:27 PM CDTQUEST DIAGNOSTICSComment: Interpretive Guide ?Intact PTH ? Calcium ? ------- Normal Parathyroid ?Normal ? Normal Hypoparathyroidism ?Low or Low Normal ?Low Hyperparathyroidism ?? Primary ?Normal or High ? High ?? Secondary ?High ? Normal or Low ?? Tertiary ? High ? High Non-Parathyroid ?? Hypercalcemia ?Low or Low Normal ?High CALCIUM9.58.6 - 10.4 mg/dL08/23/2025 12:27 PM CDTQUEST DIAGNOSTICSSpecimen (Source)Anatomical Location / LateralityCollection Method / VolumeCollection TimeReceived TimeBloodBLOOD SPECIMEN / UnknownQuest Collect / Qncefim6908/22/2025 9:43 AM CDT1 9:43 AM CDT Narrative Authorizing ProviderResult TypeResult StatusGbemisola Sayray Clayton MDSEND OUTSFinal ResultPerforming OrganizationAddressCity/State/ZIP CodePhone Number [facility] [place] [address] [address], * (ABNORMAL) XR DXA BONE DENSITY 2 SITES AXIAL (11/02/2024 11:33 AM MANAGER MEDICARE) Anatomical RegionLateralityModalitySpine, HIPS, HIPL, HIPROtherSpecimen (Source)Anatomical Location / LateralityCollection Method / VolumeCollection TimeReceived Time Impressions 11/03/2024 9:24 AM MANAGER MEDICARE Osteopenia. RECOMMENDATIONS: The National Osteoporosis Foundation recommends [...] to assess therapeutic efficacy. Bessie Fitzgerald PA-C [facility] 11/03/2024 ?? Narrative 11/03/2024 9:24 AM MANAGER MEDICARE For Patients: Results are automatically released to your [facility] ([employer]) account once available, in compliance with federal regulations. This means that you may see your results before your provider has had a chance to review them. Please allow 2-3 business days for your provider to comment on the results. XR DXA Bone Mineral Density (BMD) EXAM LOCATION: [address] [address] PATIENT NAME: Areli Barillas DATE OF : 1945 EXAM DATE: 11/02/2024 REQUESTING PROVIDER: Maris Don PA GENDER AT : female HEIGHT: 5' (10/25/2024) WEIGHT: ??144 lb 10 oz (10/25/2024) MENOPAUSAL STATUS: Postmenopausal [...] two scanners are made by the same deep fryer assembler. PROCEDURE: Dual-energy x-ray absorptiometry performed with routine [...] 0.2 Z-Score: + 1.6 Change from prior: ??None RESULTS FEMUR Left femoral neck BMD: 0.707 g/cm2 T-Score: - 2.4 Z-Score: - 0.4 Change from prior: ??None Right femoral neck BMD: 0.724 g/cm2 T-Score: - 2.3 Z-Score: - 0.2 Change from prior: ??None Left hip BMD: 0.813 g/cm2 T-Score: - 1.5 Z-Score: + 0.3 Change from prior: ??None Right hip BMD: 0.874 g/cm2 T-Score: - 1.1 Z-Score: + 0.8 Change from prior: ??None WHO criteria: Normal: T-score at or above -1 SD Osteopenia: T-score between -1.1 and -2.4 SD Osteoporosis: T-score at or below -2.5 SD FRAX RISK CALCULATION (USED FOR OSTEOPENIA ONLY): 10-year probability of major osteoporotic fracture: 17.3%. 10-year probability of hip fracture: 5.6%. Authorizing ProviderResult TypeResult StatusMaris Don PADEXAFinal Result * ANTI HCV (10/10/2023 1:26 PM MANAGER MEDICARE)ComponentValueRef RangeTest MethodAnalysis TimePerformed AtPathologist SignatureHEPATITIS C ANTIBODYNon-Reactive Non-Ifindkur90/24/2023 9:34 PM CSTPASCAGOULA HOSPITAL [facility] Comment:Please note, per www.CDC.gov: If a patient is known to be at high risk of HCV infection, or is symptomatic, and the physician's suspicion of HCV infection is high, HCV RNA testing is often employed and is of diagnostic value, even after an initial negative anti-HCV test result.Specimen (Source) Anatomical Location / LateralityCollection Method / VolumeCollection Time Received TimeBloodBLOOD SPECIMEN / UnknownVenipuncture / Uzdlhcu1310/10/2023 1:26 PM CST10/10/2023 1:28 PM MANAGER MEDICARE Narrative Authorizing ProviderResult TypeResult StatusMaris Don PASEND OUTSFinal ResultPerforming OrganizationAddressCity/State/ZIP CodePhone Number [facility] [address] [place] [address], from Last 3 Months or Most Recently Relevant to Health Maintenance Insurance * Guarantor: Areli Barillas AAccount TypeRelation to PatientDate of BirthPhone Billing AddressPersonal/QwdpysPuiq1945 ([place]) [address] [place] [address] Advance Directives TypeDate RecordedPatient RepresentativeExplanationHealthcare Directive04/19/2025 1:35 PMsigned 04/19/25Healthcare Directive/ * Full Code (Latest Code Status on File) Date ActivatedDate RavlphvhnegKirhftsx48/9/2024 8:37 AM10/25/2024 2:44 PMQuestion AnswerCommentsCode Status Discussion:* Discussed * Full Code Date ActivatedDate InactivatedComments04/09/2023 11:25 AM04/09/2023 7:56 PM QuestionAnswerCommentsCode Status Discussion:* Unable to Assess Preferences, Provider to review later Care Teams Team MemberRelationshipSpecialtyStart DateEnd Date Maris Don PA [address] [place] [address] PCP - GeneralPhysician Ectakjsjc37/4/23 [place] [address] [place] [address] Rheumatology03/09/25
--- OUTSIDE RECORDS SUMMARY | 2025-10-29 15:48 | XMS_ITS | Clinical Summary ---
Author Organization [facility] Address [address] [place] [address] Care Team Providers Care Compounding And Finishing Supervisor Name Role Phone Kourtney Ca MD Primary Care Provider [phone] Source Comments You are receiving this document as you are listed as the primary care provider,follow-up provider, or the patient has been referred to you for consultation.This is in compliance with the Medicare andCleveland Clinic Fairview Hospitalcaid EHR Incentive Program,which states Providers who transition their patient to another setting of careor provider of care or refers their patient to another provider of care shouldprovide summary care record for each transition of care or referral. [facility] Allergies Active AllergyReactionsCriticalityNoted OurkRcmyjfreCvwaxfgJtz24/03/2012 PN: nausea Monosodium Tpmqlxeqs99/27/6893RhgsbpznokoAvix28/03/2012 Medications MedicationSigDispense QuantityRefillsLast FilledStart DateEnd DateStatus levothyroxine (SYNTHROID) 75 MCG tablet Take 75 mcg by mouth daily. 1/2 tab five days a week. 1 full tab two times a weekActive Active Problems ProblemNoted DateDiagnosed DateCutaneous lupus vxylkxvmjwvto34/03/2012 Nonspecific immunological oheealtt95/03/2012 Overview (07/09/2017): Other and unspecified nonspecific immunological findings Usdifuuqcdnlne93/03/2012 Overview (07/09/2017): Unspecified hypothyroidism Family History Medical HistoryRelationNameCommentsParkinsonismBirth FatherDiabetesBirth Mother Heart DiseaseBirth MotherRelationNameStatusCommentsBirth FatherBirth Mother Social History Tobacco UseTypesPacks/DayYears UsedDateSmoking Tobacco: NeverSmokeless Tobacco: NeverAlcohol UseStandard Drinks/WeekCommentsNot Currently0 (1 standard drink = 0.6 oz pure alcohol)CommentsUnknownSex and Gender InformationValueDate RecordedSex Assigned at BirthNot on fileLegal TkfSgxdqs69/17/2015 2:37 PM CDT Gender IdentityNot on fileSexual OrientationNot on fileOccupationIndustryJob Start DateJob End DateRetiredNot on fileNot on fileNot on file Last Filed Vital Signs Vital SignReadingTime TakenCommentsBlood Sdvbtfsg407/62012/11/2018 1:04 PM SLOT FLOOR PERSON Ypszm7896 1:04 PM CSTTemperature--Respiratory Qrdb552311/27/2018 2:45 PM CSTOxygen Tlwlzabtds24%11/27/2018 2:45 PM CSTInhaled Oxygen Concentration-- Nqyhgl52.2 kg (146 lb)12/11/2018 1:04 PM XAGWfdqms555.2 cm (5' 1.5)12/11/2018 1:04 PM CSTBody Mass Index27.14012/11/2018 1:04 PM SLOT FLOOR PERSON Plan of Treatment Health MaintenanceDue DateLast DoneCommentsHep C Screening (Preventive Services) 1945Medicare Annual Wellness Visit1945Dexa02/24/2012Zoster/Shingles Vaccine (2 of 3)Pneumococcal Vaccine 50+ Yrs (2 of 2 - PCV) RSV Vaccine (1 - 1-dose 75+ series)2COVID-19 Vaccine (2 - 2024- season)/02/2021Influenza Vaccine (#1)2025 10/26/2014, 08/18/2013, 08/14/2012DTaP/Tdap/Td Vaccine (2 - Tdap)10/01/2026 10/01/2016, 05/03/2011, 05/19/2000HepA VaccineAged OutNo longer eligible based on patient's age to complete this topicHepB VaccineAged OutNo longer eligible based on patient's age to complete this topicHib VaccineAged OutNo longer eligible based on patient's age to complete this topicIPV (Polio) VaccineAged OutNo longer eligible based on patient's age to complete this topicMCV4 Vaccine Aged OutNo longer eligible based on patient's age to complete this topic Meningococcal B VaccineAged OutNo longer eligible based on patient's age to complete this topic Insurance * Guarantor: Areli Barillas TypeRelation to PatientDate of BirthPhone Billing AddressPersonal/TzyswcMqya1945 [address] [place] [address] [address] [place] [address] Care Teams Team MemberRelationshipSpecialtyStart DateEnd Date Kourtney Ca MD [address] [place] [address] [facility]03/10/12
[2025-10-29 16:06] VITALS: BP 183/86; PULSE 81; RESP 18; TEMP 36.1; O2SAT 97
--- NOTE | 2025-10-29 18:14 | CRLHL7_ITS ---
For Patients: As a result of the Century Cures Act, medical imaging exams and procedure reports are released immediately into your electronic medical record. You may view this report before your referring provider. If you have questions, please contact your health care provider. INDICATION: Fall. TECHNIQUE: CT head without contrast. COMPARISON: None. FINDINGS: CSF spaces: Mild diffuse parenchymal volume loss. Brain parenchyma and extra-axial spaces: Mild chronic white matter ischemic disease. The srinivasan-white differentiation is normal. No sign of mass, hemorrhage, or midline shift. No extra-axial fluid collection. Skull base and calvarium: Fluid in the right mastoid air cells. Otherwise, the visualized paranasal sinuses and mastoid air cells demonstrate no acute or significant findings. The visualized orbits are grossly unremarkable. No skull fractures. IMPRESSION: No acute intracranial abnormality on this noncontrast study. Please note that all CT scans at this facility use dose modulation, iterative reconstruction, and/or weight-based dosing when appropriate to reduce radiation dose to as low as reasonably achievable. Dictated by Wilner Tejeda MD @ 10/29/2025 6:46:25 PM (Electronically Signed)
--- NOTE | 2025-10-29 18:16 | ED_ITS ---
HPI - General Adult General Chief complaint: Fall/Minor Trauma Stated complaint: Concussion concerns Time Seen by Provider: 10/29/25 17:56 Source: patient Mode of arrival: ambulatory Limitations: no limitations History of Present Illness HPI narrative: 80-year-old female presenting today with concerns about a concussion. Patient states that 2 days ago she slipped on the ice and fell. She does remember hitting the ground, does not know if she lost consciousness or not. She does remember that she needed help getting up. She states that yesterday she felt a little confused. She went to get gas and forgot to put gas in her car. She has a mild headache across the frontal area today. Patient states that she had a significant concussion about 2 years ago. She denies difficulty speaking. No focal neurologic deficits. She denies neck pain. She denies changes in her vision, no ringing in her ears. No vomiting. Perhaps slight nausea. She is not on any blood thinners. Related Data Home Medications ?Medication ?Instructions ?Recorded ?Confirmed triamcinolone acetonide 0.1 % 1 applic topical PRN 05/25/25 topical ointment Previous Rx's ?Medication ?Instructions ?Recorded levothyroxine 75 mcg tablet 75 mcg PO DIRECTED #54 tabs 09/24/22 Allergies Allergy/AdvReac Type Severity Reaction Status Date / Time terbinafine Allergy Intermediate loss of Verified 05/25/25 13:30 taste, subcutanious lupas monosodium glutamate Allergy Unknown Verified 05/25/25 13:30 codeine AdvReac Mild Nausea Verified 05/25/25 13:30 Review of Systems Status of ROS: Reports: 10 or more systems reviewed and unremarkable except as noted in History and below [facility] Medical History Unsteady gait ?R26.81 - Unsteadiness on feet (ICD-10) Health care directive on file ?Z78.9 - Other specified health status (ICD-10) 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) ?Z87.898 - Personal history of other specified conditions (ICD-10) History of compression fracture of spine (05/01/11) ?Z87.81 - Personal history of (healed) traumatic fracture (ICD-10) 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) ?L93.2 - Other local lupus erythematosus (ICD-10) Surgical History History of stapedectomy (05/01/11) ?Z90.09 - Acquired absence of other part of head and neck (ICD-10) History of laparoscopic cholecystectomy (05/01/11) ?Z90.49 - Acquired absence of other specified parts of digestive tract (ICD- 10) History of bilateral cataract extraction ?Z98.41 - Cataract extraction status, right eye (ICD-10) ?Z98.42 - Cataract extraction status, left eye (ICD-10) Social History Smoking Status: Never smoker Do you use any of these nicotine containing products: None How often do you have a drink containing alcohol: never AUDIT-C Alcohol total score: 0 Non-prescribed substance use: denies use Exam Narrative: Exam Narrative: Well-nourished well-developed patient in no acute distress. Alert and oriented. Answers questions appropriately. Mood and affect are appropriate. Patient speaks in full sentences without needing to catch her breath. HEENT: Normocephalic atraumatic. Pupils are equally round reactive to light. Extraocular muscles are intact. Conjunctivae are moist without any icterus noted. Moist mucous membranes. Patient moves her neck without any pain. Gait is normal. Strength is 5/5 of the lower extremities. Skin: Well perfused without any obvious rashes. Const: Vital Signs, click to edit/add: Vital Signs - 24 hr 10/29/25 16:06 Temperature 96.9 F L Pulse Rate [Right Pulse Oximeter] 81 Respiratory Rate 18 Blood Pressure [Ri ght Upper Arm] 183/86 H Pulse Oximetry 97 Oxygen Delivery Me thod Room Air Course Course ED Course: Given her amnesia surrounding the event did go ahead and proceed with a head CT. CT, reviewed by me, did not show any acute pathology. Vital Signs Vital signs: Initial Vital Signs Temperature 96.9 F L 10/29/25 16:06 Temperature Source Temporal Artery Scan 10/29/25 16:06 Pulse Rate 81 10/29/25 16:06 Respiratory Rate 18 10/29/25 16:06 Blood Pressure 183/86 H 10/29/25 16:06 Blood Pressure Mean 118 H 10/29/25 16:06 Blood Pressure Position Sitting 10/29/25 16:06 Pulse Oximetry 97 10/29/25 16:06 Oxygen Delivery Method Room Air 10/29/25 16:06 Vital Signs Temperature 96.9 F L 10/29/25 16:06 Pulse Rate 81 10/29/25 16:06 Respiratory Rate 18 10/29/25 16:06 Blood Pressure 183/86 H 10/29/25 16:06 Pulse Oximetry 97 10/29/25 16:06 Oxygen Delivery Method Room Air 10/29/25 16:06 Temperature 96.9 F L 10/29/25 16:06 Pulse Rate 81 10/29/25 16:06 Respiratory Rate 18 10/29/25 16:06 Blood Pressure 183/86 H 10/29/25 16:06 Pulse Oximetry 97 10/29/25 16:06 Oxygen Delivery Method Room Air 10/29/25 16:06 Medical Decision Making MDM Narrative Medical decision making narrative: 80-year-old female with a mild concussion. Discussed concussion cares. Patient is already established with the physical therapist-will continue to see them for concussion rehab. Imaging Data CT scan - head: Attestation: I have reviewed the pertinent imaging results. Radiologist's impression: TECHNIQUE: CT head without contrast. COMPARISON: None. FINDINGS: CSF spaces: Mild diffuse parenchymal volume loss. Brain parenchyma and extra-axial spaces: Mild chronic white matter ischemic disease. The srinivasan-white differentiation is normal. No sign of mass, hemorrhage, or midline shift. No extra-axial fluid collection. Skull base and calvarium: Fluid in the right mastoid air cells. Otherwise, the visualized paranasal sinuses and mastoid air cells demonstrate no acute or significant findings. The visualized orbits are grossly unremarkable. No skull fractures. IMPRESSION: No acute intracranial abnormality on this noncontrast study. Discharge Plan Discharge Clinical Impression: Concussion without loss of consciousness Patient Disposition: Home, Self-Care Condition: Stable Additional Instructions: Your CT scan was normal today. Reduce screen time, avoid loud sounds and bright lights until your head feels better. Follow-up with physical therapist for concussion rehab. Prescriptions: No Action triamcinolone acetonide 0.1 % ointment 1 applic topical PRN Rx Instructions: APPLY TO AFFECTED AREA levothyroxine 75 mcg tablet 75 mcg PO DIRECTED Qty: 54 3RF Rx Instructions: take 75mg two days per week and take 37.5mg daily for other 5 days Follow Up/Referrals: Kourtney Ca MD [Primary Care Provider, Internal Medicine] Stand Alone Forms: Tripeese Info Instructions
== END 2025-10-29 19:43 | disposition home or self-care (01) ==
PROVIDERS: Emergency Provider Family Medicine; PCP Internal Medicine
DX: S06.0X0A Concussion without loss of consciousness, initial encounter (principal); R51.9 Headache, unspecified; R41.3 Other amnesia; R41.0 Disorientation, unspecified; W00.0XXA Fall on same level due to ice and snow, initial encounter
CPT/HCPCS: 70450; 99283; 99284